=== PATIENT | female | born 1985 | race Caucasian/White ===

== ENCOUNTER 2016-07-01 07:30 | Emergency (ER) | payer OTHER ==
[~2016-07-01] VITALS: Ht 172.7 cm; Wt 88.0 kg
[~2016-07-01 07:30] MED LIST: ACET-789 PO; HYDR-3812 PO; OMEP40CA36 PO; OXYC-197 PO; PREN-53 PO
--- OUTSIDE RECORDS SUMMARY | 2016-07-01 07:36 | XMS REPORT | Continuity of Care Document ---
Author Author [facility] Organization [facility] Address Unknown Phone Unavailable Care Team Providers Care Electronic Engineering Draftsperson Name Role Phone Obdulia Fisher PCP [phone] Source Comments Some departments are not documenting in the electronic medical record. If you do not see the information that you expected, contact Release of Information in the Health Information Management department at [phone] for further assistance in locating additional records.[facility] Active Allergies and Adverse Reactions No Known Allergies Current Medications Prescription Sig. Disp. Refills Start End Date Status Date ACETAMINOPHEN (TYLENOL Take 650 mg by mouth Active PO) Every 4-6 Hours as needed. ferrous sulfate 325 mg Take 1 Tab by mouth Four 120 5 03/10/20 Active (65 mg Iron) tablet Times Daily. senna/docusate Take 1 Tab by mouth Twice 60 5 03/10/20 Active (SENOKOT-S) 8.6/50 mg Daily. 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 Abdominal pain 03/08/2009 Acute kidney failure (HCC) 03/08/2009 UTI 03/08/2009 Social History Tobacco Use Types Packs/Day Years Used Date Never Assessed Last Filed Vital Signs Vital Sign Reading Time Taken Blood Pressure 145/91 04/26/2009 8:52 AM VICE PRESIDENT MEDIA RELATIONS Pulse 86 04/26/2009 8:52 AM VICE PRESIDENT MEDIA RELATIONS Temperature 36.7 C (98 F) 04/26/2009 8:52 AM VICE PRESIDENT MEDIA RELATIONS Respiratory Rate - - Height 1.676 m (5' 6") 04/26/2009 8:52 AM VICE PRESIDENT MEDIA RELATIONS Weight 114.488 kg (252 lb 6.4 04/26/2009 8:52 AM VICE PRESIDENT MEDIA RELATIONS oz) Body Mass Index 40.76 04/26/2009 8:52 AM VICE PRESIDENT MEDIA RELATIONS Oxygen Saturation 98% 03/10/2009 3:30 PM CDT Plan of Care Health Maintenance Due Date Last Done Comments Physical (Comprehensive) 10/31/1991 Exam Pertussis Vaccine 10/31/1995 Tetanus Vaccine 2001 Cervical Cancer Screening 2005 Influenza Vaccine 02/22/2016 Results from Last 3 Months Not on file
[2016-07-01 07:57] LABS: BILIRUBIN,URINE NEGATIVE (NEGATIVE); KETONES,URINE NEGATIVE (NEGATIVE); LEUKOCYTE ESTERASE ,URINE NEGATIVE (NEGATIVE); NITRITE,URINE NEGATIVE (NEGATIVE); PH,URINE 6.5 (5-9); PROTEIN,URINE NEGATIVE (NEGATIVE); UROBILINOGEN,URINE NORMAL (NORMAL)
--- NOTE | 2016-07-01 07:58 | ED GU-Female ---
General Chief Complaint: Abdominal/GI Problems Stated Complaint: NAUSEA/CRAMPING, 5 TO 6 WEEKS PREG Source: patient Exam Limitations: no limitations History of Present Illness Time seen by provider: 07:30 Initial Comments Here with lower abdominal cramping and pain and reports that she is approximately 5-6 weeks . She has not had ultrasound yet. Denies vaginal discharge or bleeding. Denies fever or chills. Timing/Duration: this morning (530 a.m.) Severity/Quality: moderate, cramping Location: suprapubic Radiation: none Activities at Onset: none Sexual [place] History: greater than 2 months ago Modifying Factors: Improves With Resting Associated Symptoms: abdominal painNo dysuria, No fever/chills, No lower back pain, No nausea/vomiting, No urinary frequency Allergies and Home Medications Allergies Coded Allergies: No Known Drug Allergies (Verified , 03/05/09) Home Medications Omeprazole 40 Mg Capsule.dr 40 MG PO DAILY (Reported) Oxycodone HCl/Acetaminophen 1 Each Tablet #30 1 EACH PO Q4H PRN PRN ABDOMINAL PAIN Prescribed by: IRMA RUIZ on 02/21/16 1000 Constitutional: see HPINo chills, No fever EENTM: nose congestionNo throat pain Respiratory: no symptoms reportedNo cough, No short of breath Gastrointestinal: abdominal painNo nausea, No vomiting Genitourinary: no symptoms reported Musculoskeletal: no symptoms reported Skin: no symptoms reported Past Mjbknvd-Gkpkgk-Gopvvu Hx Patient Social History Alcohol Use: Denies Use Recreational Drug Use: No Smoking Status: Never a Smoker Recent Foreign Travel: No Contact w/Someone Who Travel: No Surgeries HX Surgeries: Yes Surgeries: Gallbladder Respiratory Hx Respiratory Disorders: No Cardiovascular Hx Cardiac Disorders: No Neurological Hx Neurological Disorders: No Reproductive System Hx Reproductive Disorders: No Female Reproductive Disorders: Denies Genitourinary Hx Genitourinary Disorders: No Gastrointestinal Hx Gastrointestinal Disorders: Yes Gastrointestinal Disorders: Gastroesophageal Reflux, Gall Bladder Disease Musculoskeletal Hx Musculoskeletal Disorders: No Endocrine Hx Endocrine Disorders: No HEENT HX ENT Disorders: No Cancer Hx Cancer: No Psychosocial Hx Psychiatric Problems: No Integumentary HX Skin/Integumentary Disorder: No Blood Transfusions Hx Blood Disorders: No (anemia) Adverse Reaction to a Blood Tr: No (hx of transfusion in 2008) Reviewed Nursing Assessment Reviewed/Agree w Nursing PMH: Yes Family Medical History Significant Family History: No Pertinent Family Hx Physical Exam Vital Signs Capillary Refill : General Appearance: WD/WN no apparent distress HEENT: PERRL/EOMI pharyngeal erythema (mild) other (moderate bilateral nasal congestion with clear rhinorrhea) Neck: full range of motion supple Cardiovascular: regular rate, rhythm no murmur Respiratory: lungs clear normal breath sounds Gastrointestinal: non tender soft Pelvic: normal external exam discharge (white/doe)No tender adnexa, tender uterus (mild)No vaginal bleeding Back: normal inspection no CVA tenderness no vertebral tenderness Extremities: non-tender normal inspection Neurologic/Psychiatric: alert oriented x 3 Skin: normal color warm/dry Progress/Results/Core Measures Results/Orders Lab Results Laboratory Tests Test 07/01/16 07:45 07/01/16 07:50 07/01/16 08:01 Range/Units Urine Bacteria FEW H /HPF Urine Bilirubin NEGATIVE NEGATIVE Urine Casts NONE /LPF Urine Clarity CLEAR Urine Color YELLOW Urine Crystals NONE /LPF Urine Culture Indicated NO Urine Glucose (UA) NEGATIVE NEGATIVE Urine Ketones NEGATIVE NEGATIVE Urine Leukocyte Esterase NEGATIVE NEGATIVE Urine Mucus NEGATIVE /LPF Urine Nitrite NEGATIVE NEGATIVE Urine Protein NEGATIVE NEGATIVE Urine RBC 2-5 H /HPF Urine RBC (Auto) 2+ H NEGATIVE Urine Specific [place] 1.015 L 1.016-1.022 Urine Squamous Epithelial Cells 5-10 /HPF Urine Urobilinogen NORMAL NORMAL MG/DL Urine WBC 0-2 /HPF Urine pH 6.5 5-9 Alanine Aminotransferase (ALT/SGPT) 14 0-55 U/L Albumin 4.5 3.2-4.5 G/DL Alkaline Phosphatase 62 40-136 U/L Anion Gap 12 5-14 MMOL/L Aspartate Amino Transf (AST/SGOT) 15 5-34 U/L BUN/Creatinine Ratio 13 Blood Urea Nitrogen 10 7-18 MG/DL Calcium Level 9.3 8.5-10.1 MG/DL Carbon Dioxide Level 22 21-32 MMOL/L Chloride Level 104 98-107 MMOL/L Creatinine 0.79 0.60-1.30 MG/DL Estimat Glomerular Filtration Rate > 60 Glucose Level 98 70-105 MG/DL Hematocrit 40 35-52 % Hemoglobin 13.4 11.5-16.0 G/DL Human Chorionic Gonadotropin, Quant 175 H <5 MIU/ML Mean Corpuscular Hemoglobin 30 25-34 PG Mean Corpuscular Hemoglobin Concent 34 32-36 G/DL Mean Corpuscular Volume 89 80-99 FL Mean Platelet Volume 9.9 7.4-10.4 FL Platelet Count 329 130-400 10^3/uL Potassium Level 3.5 L 3.6-5.0 MMOL/L Red Blood Count 4.42 4.35-5.85 10^6/uL Red Cell Distribution Width 12.5 10.0-14.5 % Sodium Level 138 135-145 MMOL/L Total Bilirubin 0.9 0.1-1.0 MG/DL Total Protein 7.6 6.4-8.2 G/DL White Blood Count 10.4 4.3-11.0 10^3/uL Micro Results Microbiology 07/01/16 Genital Culture, Resulted Pending 07/01/16 Wet Prep - Final, Resulted My Orders Orders-MONIQUE MORENO MD Hcg,Quantitative (07/01/16 07:40) Cbc No Diff (07/01/16 07:40) Comprehensive Metabolic Panel (07/01/16 07:40) Wet Prep (07/01/16 07:40) Neisseria Gonorrhea Dna (07/01/16 07:40) Chlamydia Dna (07/01/16 07:40) Genital Culture (07/01/16 07:40) Ua Culture If Indicated (07/01/16 07:40) Saline Lock/Iv-Start (07/01/16 08:03) Ns Iv 1000 Ml (Sodium Chloride 0.9%) (07/01/16 08:03) Us Ob<14 Wks Sngle W/Transvag (07/01/16 07:40) Medications Given in ED Current Medications Medications Dose Ordered Sig/Alex Route Start Time Stop Time Status Last Admin Dose Admin Sodium Chloride 1,000 ml @ 0 mls/hr Q0M ONCE IV 07/01/16 08:03 07/01/16 08:04 DC 07/01/16 09:00 1,000 MLS/HR Progress Note : Progress Note Seen and evaluated. IV, labs and UA ordered. Ultrasound OB ordered. Pelvic exam ordered. 0925: Quant is 157. Ultrasound only shows thickened the endometrium but no obvious findings of outside the uterus or within the uterus otherwise. This would be too early for evaluation given the low Quant level. Patient does have wbc's on wet prep. She is electing to wait for antibiotics until cultures have process. Patient has appointment with Dr. De Anda on . She will follow-up with her related to results and further treatment depending on type of organism present if any abnormalities are noted. Discharged home with return precautions. Patient verbalize understanding instructions and agreement with plan. Patient feels much better after fluid bolus. Diagnostic Imaging Diagonstic Imaging: Ultrasound Plain Films/CT/US/NM/MRI: pelvis Comments VIA [facility]. [place], [place] NAME: ANNA CASTANEDA [facility] REC#: [id number] PT STATUS: REG ER : 1985 PHYSICIAN: MONIQUE MORENO MD ADMIT DATE: 07/01/16/ER Draft Date of Exam:07/01/16 US OB<14 WKS SNGLE W/TRANSVAG CLINICAL INDICATION: Patient with cramping. ESTIMATED GESTATIONAL AGE BY LMP: 5 weeks, 2 days. EXAM: Transabdominal and transvaginal pelvic ultrasound. COMPARISON: None. FINDINGS: There is thickening of the endometrium which measures 1.5 cm. There is no cystic structure or evidence of a gestational sac in the intrauterine region. The uterus is otherwise unremarkable and measures 9.7 cm x 4.7 cm x 5.8 cm. The right and left ovaries show no significant abnormality and demonstrate normal-appearing Doppler flow. The left ovary measures 2.7 cm x 2.1 cm x 2.3 cm and the right ovary measures 3.3 cm x 2.1 cm x 2.7 cm. There is no significant free fluid seen in the pelvis. IMPRESSION: There is no evidence of an intrauterine or gestational sac seen on this exam. These findings may represent failed versus very early . There is no evidence of ectopic seen on this exam. Trending of beta-hCGs and serial pelvic ultrasounds would help better evaluate. Dictated on workstation # [id number] Dict: 07/01/16 0935 Trans: 07/01/16 0949 [id number] Interpreted by: EMI GOMEZ MD Electronically signed by: Departure Impression Impression: Primary Impression: Suprapubic abdominal pain Additional Impression: Threatened miscarriage Disposition: HOME, SELF-CARE Condition: Improved Departure-Patient Inst. Decision time for Depature: 09:30 Referrals: [facility] (PCP) Primary Care Physician ZAHIDA DE ANDA DO (Family) Primary Care Physician Patient Instructions: Acute Abdomen (Belly Pain), Adult (DC), Threatened Miscarriage Add. Discharge Instructions: All discharge instructions reviewed with patient and/or family. Voiced understanding. Procedure for worse pain, fever, vomiting, weakness, breathing problems, increasing vaginal discharge, vaginal bleeding 2 pads per hour for more than 2 hours or other concerns as needed. Your beta hCG quantitative level was 157 today. You will need to follow-up with Dr. De Anda this week for recheck and further evaluation. Your cultures are pending and you may need treatment of vaginal infection. Follow-up with Dr. De Anda related to culture results and the need for further treatment. Return for worse pain, fever, vomiting, weakness, breathing problems or other concerns as needed. Copy Copies To 1: ZAHIDA DE ANDA TIMOTHY D MD Jul 01, 2016 07:58
[2016-07-01 08:01] LABS: MEAN PLATELET VOLUME 9.9 FL (7.4-10.4); RED BLOOD COUNT 4.42 10^6/uL (4.35-5.85); RED CELL DISTRIBUTION WIDTH 12.5 % (10.0-14.5); WHITE BLOOD COUNT 10.4 10^3/uL (4.3-11.0)
[2016-07-01] MEDS ORDERED: NS IV 1000 ML 1,000 ML IV ONE (08:03)
[2016-07-01 08:08] LABS: WBC,URINE 0-2 /HPF
[2016-07-01 08:21] LABS: ALANINE AMINOTRANSFERASE 14 U/L (0-55); ALBUMIN 4.5 G/DL (3.2-4.5); ANION GAP 12 MMOL/L (5-14); ASPARTATE AMINO TRANSFERASE 15 U/L (5-34); BILIRUBIN,TOTAL 0.9 MG/DL (0.1-1.0); BLOOD UREA NITROGEN 10 MG/DL (7-18); BUN/CREATININE RATIO 13; CALCIUM 9.3 MG/DL (8.5-10.1); CARBON DIOXIDE 22 MMOL/L (21-32); CHLORIDE 104 MMOL/L (98-107); CREATININE SERUM 0.79 MG/DL (0.60-1.30); GFR ESTIMATED > 60; GLUCOSE 98 MG/DL (70-105); POTASSIUM 3.5 MMOL/L (3.6-5.0); SODIUM 138 MMOL/L (135-145); TOTAL PROTEIN 7.6 G/DL (6.4-8.2)
--- NOTE | 2016-07-01 09:49 | Diagnostic Imaging Report ---
CLINICAL INDICATION: Patient with cramping. ESTIMATED GESTATIONAL AGE BY LMP: 5 weeks, 2 days. EXAM: Transabdominal and transvaginal pelvic ultrasound. COMPARISON: None. FINDINGS: There is thickening of the endometrium which measures 1.5 cm. There is no cystic structure or evidence of a gestational sac in the intrauterine region. The uterus is otherwise unremarkable and measures 9.7 cm x 4.7 cm x 5.8 cm. The right and left ovaries show no significant abnormality and demonstrate normal-appearing Doppler flow. The left ovary measures 2.7 cm x 2.1 cm x 2.3 cm and the right ovary measures 3.3 cm x 2.1 cm x 2.7 cm. There is no significant free fluid seen in the pelvis. IMPRESSION: There is no evidence of an intrauterine or gestational sac seen on this exam. These findings may represent failed versus very early . There is no evidence of ectopic seen on this exam. Trending of beta-hCGs and serial pelvic ultrasounds would help better evaluate. Dictated by: Dictated on workstation # [id number]
[2016-07-01 10:03] VITALS: BP 130/91
[2016-07-01] MEDS ORDERED: NS IV 1000 ML 1,000 ML ONE (10:34)
== END 2016-07-01 10:03 | disposition home or self-care (01) ==
LOC: EDUNIT# 07:30 → ER 07:32
DX: O20.0 Threatened abortion (principal); O26.891 Other specified pregnancy related conditions, first trimester; Z3A.01 Less than 8 weeks gestation of pregnancy
CPT/HCPCS: 36415; 76801; 76817; 80053; 81000; 84702; 85027; 87070; 87210; 87491; 87591; 96360

== ENCOUNTER → 2016-07-10 | Outpatient (CLI) | payer OTHER ==
--- OUTSIDE RECORDS SUMMARY | 2016-07-10 08:44 | XMS REPORT | Continuity of Care Document ---
Author Author [facility] Organization [facility] Address Unknown Phone Unavailable Care Team Providers Care Box Spinner Name Role Phone Obdulia Fisher PCP [phone] Source Comments Some departments are not documenting in the electronic medical record. If you do not see the information that you expected, contact Release of Information in the Health Information Management department at [phone] for further assistance in locating additional records.[facility] Active Allergies and Adverse Reactions No [...] Taken Blood Pressure 145/91 04/26/2009 8:52 AM DINKING MACHINE OPERATOR Pulse 86 04/26/2009 8:52 AM DINKING MACHINE OPERATOR Temperature 36.7 C (98 F) 04/26/2009 8:52 AM DINKING MACHINE OPERATOR Respiratory Rate - - Height 1.676 m (5' 6") 04/26/2009 8:52 AM DINKING MACHINE OPERATOR Weight 114.488 kg (252 lb 6.4 04/26/2009 8:52 AM DINKING MACHINE OPERATOR oz) Body Mass Index 40.76 04/26/2009 8:52 AM DINKING MACHINE OPERATOR Oxygen Saturation 98% 03/10/2009 3:30 PM CDT Plan of Care Health Maintenance Due Date Last Done Comments Physical (Comprehensive) 10/31/1991 Exam Pertussis Vaccine 10/31/1995 Tetanus Vaccine 2001 Cervical Cancer Screening 2005 Influenza Vaccine 02/22/2016 Results from Last 3 Months Not on file
== END ==
LOC: LAB 08:40
PROVIDERS: ATTEND Obstetrics & Gynecology
DX: Z34.81 Encounter for supervision of other normal pregnancy, first trimester (principal)
CPT/HCPCS: 36415; 84702

== ENCOUNTER → 2016-08-08 | Outpatient (CLI) | payer OTHER ==
--- OUTSIDE RECORDS SUMMARY | 2016-08-08 13:21 | XMS REPORT | Continuity of Care Document ---
Author Author [facility] Organization [facility] Address Unknown Phone Unavailable Care Team Providers Care Director Of Health Education Name Role Phone Obdulia Fisher PCP [phone] Source Comments Some departments are not documenting in the electronic medical record. If you do not see the information that you expected, contact Release of Information in the Health Information Management department at [phone] for further assistance in locating additional records.[facility] Active Allergies and Adverse Reactions No Known [...] Taken Blood Pressure 145/91 04/26/2009 8:52 AM HOME PERFORMANCE LABORER Pulse 86 04/26/2009 8:52 AM HOME PERFORMANCE LABORER Temperature 36.7 C (98 F) 04/26/2009 8:52 AM HOME PERFORMANCE LABORER Respiratory Rate - - Height 1.676 m (5' 6") 04/26/2009 8:52 AM HOME PERFORMANCE LABORER Weight 114.488 kg (252 lb 6.4 04/26/2009 8:52 AM HOME PERFORMANCE LABORER oz) Body Mass Index 40.76 04/26/2009 8:52 AM HOME PERFORMANCE LABORER Oxygen Saturation 98% 03/10/2009 3:30 PM CDT Plan of Care Health Maintenance Due Date Last Done Comments Physical (Comprehensive) 10/31/1991 Exam Pertussis Vaccine 10/31/1995 Tetanus Vaccine 2001 Cervical Cancer Screening 2005 Influenza Vaccine 02/22/2016 Results from Last 3 Months Not on file
== END ==
LOC: LAB 13:17
PROVIDERS: ATTEND Obstetrics & Gynecology
DX: O03.9 Complete or unspecified spontaneous abortion without complication (principal)
CPT/HCPCS: 36415; 84702

== ENCOUNTER → 2016-08-22 | Outpatient (CLI) | payer OTHER ==
--- OUTSIDE RECORDS SUMMARY | 2016-08-22 11:40 | XMS REPORT | Continuity of Care Document ---
Author Author [facility] Organization [facility] Address Unknown Phone Unavailable Care Team Providers Care Irish Moss Operator Name Role Phone Obdulia Fisher PCP [phone] Source Comments Some departments are not documenting in the electronic medical record. If you do not see the information that you expected, contact Release of Information in the Health Information Management department at [phone] for further assistance in locating additional records.[facility] Active Allergies and Adverse Reactions No [...] Taken Blood Pressure 145/91 04/26/2009 8:52 AM TIMBER MANAGEMENT PROFESSOR Pulse 86 04/26/2009 8:52 AM TIMBER MANAGEMENT PROFESSOR Temperature 36.7 C (98 F) 04/26/2009 8:52 AM TIMBER MANAGEMENT PROFESSOR Respiratory Rate - - Height 1.676 m (5' 6") 04/26/2009 8:52 AM TIMBER MANAGEMENT PROFESSOR Weight 114.488 kg (252 lb 6.4 04/26/2009 8:52 AM TIMBER MANAGEMENT PROFESSOR oz) Body Mass Index 40.76 04/26/2009 8:52 AM TIMBER MANAGEMENT PROFESSOR Oxygen Saturation 98% 03/10/2009 3:30 PM CDT Plan of Care Health Maintenance Due Date Last Done Comments Physical (Comprehensive) 10/31/1991 Exam Pertussis Vaccine 10/31/1995 Tetanus Vaccine 2001 Cervical Cancer Screening 2005 Influenza Vaccine 02/22/2016 Results from Last 3 Months Not on file
== END ==
LOC: LAB 11:15
PROVIDERS: ATTEND Obstetrics & Gynecology
DX: O03.9 Complete or unspecified spontaneous abortion without complication (principal)
CPT/HCPCS: 36415; 84702

== ENCOUNTER 2017-03-18 19:08 | Emergency (ER) | payer SELFPAY ==
[~2017-03-18] VITALS: Ht 172.7 cm; Wt 88.0 kg
[2017-03-18] MEDS ORDERED: SULF1TAB35 PO (19:23)
--- NOTE | 2017-03-18 19:24 | ED Integumentary General ---
General Chief Complaint: Bite-Animal/Human/Insect Stated Complaint: BITES ON RT ARM Source: patient Exam Limitations: no limitations History of Present Illness Time seen by provider: 19:20 Initial Comments To ER with 4 "bites" to the posterior right upper arm. These been present for about 2 days. They're itchy. She states that he had some blisters on them yesterday and currently they have honey colored exudate. She does not recall being bitten by anything. Timing/Duration: yesterday Severity: mild Allergies and Home Medications Allergies Coded Allergies: No Known Drug Allergies (Verified , 03/05/09) Home Medications Omeprazole 40 Mg Capsule.dr, 40 MG PO DAILY, (Reported) Oxycodone HCl/Acetaminophen 1 Each Tablet, 1 EACH PO Q4H PRN for ABDOMINAL PAIN , #30 Prescribed by: IRMA RUIZ on 02/21/16 1000 Constitutional: see HPI EENTM: see HPI Respiratory: no symptoms reported Cardiovascular: no symptoms reported Genitourinary: no symptoms reported Musculoskeletal: no symptoms reported Skin: see HPI Psychiatric/Neurological: No Symptoms Reported Endocrine: No Symptoms Reported Past Oafdwfp-Xbcpes-Ftknxr Hx Patient Social History Recent Foreign Travel: No Contact w/Someone Who Travel: No Recent Hopitalizations: No Immunizations Up To Date Date of Influenza Vaccine: Mar 27, 2016 Seasonal Allergies Seasonal Allergies: No Surgeries Surgeries: Gallbladder Reproductive System Hx Reproductive Disorders: No Female Reproductive Disorders: Denies Gastrointestinal Gastrointestinal Disorders: Gastroesophageal Reflux, Gall Bladder Disease Blood Transfusions Adverse Reaction to a Blood Tr: No (hx of transfusion in 2008) Family Medical History Significant Family History: No Pertinent Family Hx Physical Exam Vital Signs Capillary Refill : General Appearance: WD/WN, no apparent distress HEENT: PERRL/EOMI, normal ENT inspection Neck: non-tender, full range of motion Respiratory: no respiratory distress, no accessory muscle use Gastrointestinal: normal bowel sounds, non tender, soft Extremities: normal range of motion, non-tender Neurologic/Psychiatric: alert, normal mood/affect, oriented x 3 Skin: normal color, warm/dry, other (41 cm circular areas posterior right upper arm with honey-colored exudate.) Progress/Results/Core Measures Results/Orders My Orders Orders - BROOKE MCKENZIE APRN Mupirocin Ointment (Bactroban Ointment (03/18/17 21:00) Sulfamethoxazole/Trimet Ds Tab (Bactrim (03/18/17 19:30) Departure Impression Impression: Primary Impression: Impetigo bullosa Disposition: 01 HOME, SELF-CARE Condition: Stable Departure-Patient Inst. Decision time for Depature: 19:22 Referrals: JOHNNIE GONZALEZ DO (PCP) Primary Care Physician ARISTEO BASSETT (Family) Primary Care Physician Patient Instructions: Impetigo (DC) Add. Discharge Instructions: 1. Wash these areas with soap and water at least once a day and try to scrub gently to remove the crusts from these 2. After you bathe, apply the antibiotic ointment twice daily for 7 days 3. Antibiotics as directed 4. Use a topical lckl-bjz-blodlep steroid cream like Cortizone 10 to help with itching as well. Scripts Sulfamethoxazole/Trimethoprim (Bactrim Ds Tablet) 1 Each Tablet 1 EACH PO BID, #14 TAB Prov: BROOKE MCKENZIE APRN 03/18/17 BROOKE MCKENZIE APRN Mar 18, 2017 19:24
[2017-03-18 19:30] VITALS: BP 145/95
[2017-03-18] MEDS ORDERED: TRIM/SULFAMETH 160/800 (SEPTRA DS) TAB PO ONE (19:30)
[2017-03-18] MEDS ORDERED: MUPIROCIN 2% OINT 22 GM (BACTROBAN) TUBE TOP SCH (21:00)
[2017-05-06] MEDS ORDERED: HYDR-3812 PO (14:05)
[2017-05-06] MEDS ORDERED: IBUP-1773 PO (14:05)
== END 2017-03-18 19:30 | disposition home or self-care (01) ==
LOC: EDUNIT# 19:08 → ER 19:10
DX: L01.03 Bullous impetigo (principal); K21.9 Gastro-esophageal reflux disease without esophagitis; Z87.19 Personal history of other diseases of the digestive system
CPT/HCPCS: 99283

== ENCOUNTER 2017-05-06 12:00 | Day surgery (SDC) | payer BC ==
[~2017-05-06] VITALS: Ht 172.7 cm; Wt 103.0 kg
[~2017-05-06 12:00] MED LIST changes: +SULF1TAB35 PO
[2017-05-06 12:17] VITALS: BP 118/76
[2017-05-06 12:34] LABS: BASOPHILS % (AUTO) 0 % (0-10); EOSINOPHILS # (AUTO) 0.2 10^3/uL (0.0-0.3); EOSINOPHILS % (AUTO) 2 % (0-10); LYMPHOCYTES # (AUTO) 2.2 X 10^3 (1.0-4.0); LYMPHOCYTES % (AUTO) 22 % (12-44); MEAN CORPUSCULAR HEMOGLOBIN 31 PG (25-34); MEAN CORPUSCULAR HGB CONC 35 G/DL (32-36); MEAN CORPUSCULAR VOLUME 90 FL (80-99); MONOCYTES # (AUTO) 0.5 X 10^3 (0.0-1.0); MONOCYTES % (AUTO) 5 % (0-12); NEUTROPHILS # (AUTO) 7.1 X 10^3 (1.8-7.8); NEUTROPHILS % (AUTO) 71 % (42-75); PLATELET COUNT 295 10^3/uL (130-400); RED BLOOD COUNT 3.96 10^6/uL (4.35-5.85); RED CELL DISTRIBUTION WIDTH 12.6 % (10.0-14.5); WHITE BLOOD COUNT 10.1 10^3/uL (4.3-11.0)
[2017-05-06] MEDS ORDERED: metroNIDAZOLE 500 MG/100 ML IVPB (PRE-MIX) IV ONE (12:45)
[2017-05-06] MEDS ORDERED: CATHETER FLUSH 10 ML SYR IV PRN (12:45)
[2017-05-06] MEDS ORDERED: ceFAZolin 1 GM/NS 50 ML IVPB IV ONE ×2 (12:45)
--- OUTSIDE RECORDS SUMMARY | 2017-05-06 12:45 | XMS REPORT | Clinical Summary ---
Author Author [facility] Organization [facility] Address Unknown Phone Unavailable Care Team Providers Care Medical Record Coder Name Role Phone PCP Unavailable Source Comments Some departments are not documenting in the electronic medical record. If you do not see the information that you expected, contact Release of Information in the Health Information Management department at [phone] for further assistance in locating additional records.[facility] Allergies No Known Allergies Current Medications Prescription Sig. Disp. Refills Start End Date Status Date ACETAMINOPHEN (TYLENOL Take 650 mg by mouth Active PO) Every 4-6 Hours as needed. ferrous sulfate 325 mg Take 1 Tab by mouth Four 120 5 03/10/20 Active (65 mg Iron) tablet Times Daily. 09 senna/docusate Take 1 Tab by mouth Twice 60 5 03/10/20 Active (SENOKOT-S) 8.6/50 mg Daily. 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 Abdominal pain 03/08/2009 Acute kidney failure (HCC) 03/08/2009 UTI 03/08/2009 Family History Medical History Relation Name Comments Hypertension Mother Heart Disease grandparents Relation Name Status Comments Mother Social History Tobacco Use Types Packs/Day Years Used Date Never Assessed Sex Assigned at Date Recorded Not on file Last Filed Vital Signs Vital Sign Reading Time Taken Blood Pressure 145/91 04/26/2009 8:52 AM FAMILY PRACTICE DOCTOR Pulse 86 04/26/2009 8:52 AM FAMILY PRACTICE DOCTOR Temperature 36.7 C (98 F) 04/26/2009 8:52 AM FAMILY PRACTICE DOCTOR Respiratory Rate - - Oxygen Saturation 98% 03/10/2009 3:30 PM CDT Inhaled Oxygen - - Concentration Weight 114.5 kg (252 lb 6.4 oz) 04/26/2009 8:52 AM FAMILY PRACTICE DOCTOR Height 167.6 cm (5' 6") 04/26/2009 8:52 AM FAMILY PRACTICE DOCTOR Body Mass Index 40.74 04/26/2009 8:52 AM FAMILY PRACTICE DOCTOR Plan of Treatment Health Maintenance Due Date Last Done Comments PHYSICAL (COMPREHENSIVE) 10/31/1991 EXAM PERTUSSIS VACCINE 10/31/1995 TETANUS VACCINE 2001 CERVICAL CANCER SCREENING 2014 INFLUENZA VACCINE 01/21/2017 Results Not on filefrom Last 3 Months
--- OUTSIDE RECORDS SUMMARY | 2017-05-06 12:48 | XMS REPORT ---
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 Active 708288658 Problem Epigastric pain R10.13 Active 04472241 ALLERGIES No Known Allergies SOCIAL HISTORY Never Assessed PLAN OF CARE Activity Details Follow Up 3 weeks Reason: VITAL SIGNS Height 67 in 2016-08-01 Weight 200.0 lbs 2016-08-01 Temperature 98.3 degrees Fahrenheit 2016-08-01 Heart Rate 76 bpm 2016-08-01 Respiratory Rate 18 2016-08-01 BMI 31.32 kg/m2 2016-08-01 Blood pressure systolic 122 mmHg 2016-08-01 Blood pressure diastolic 76 mmHg 2016-08-01 MEDICATIONS Medication Instructions Dosage Frequency Start Date End Date Duration Status Paxil 10 mg Orally Once a day 1 tablet in the morning 24h Jul, 30 day(s) Active Omeprazole 40 MG Orally Once a day 1 capsule 24h 30 day(s) Active Clonazepam 0.5 MG Orally Once a day prn 1 tablet Jul, 28 days Active RESULTS No Results PROCEDURES No Known procedures IMMUNIZATIONS No Known Immunizations MEDICAL (GENERAL) HISTORY Type Description Date Medical History Acid Reflux Surgical History gall bladder removal 02/21/16 Hospitalization History Kidney failure, anemic, low RBC's - was transferred from [facility] to 2008
--- OUTSIDE RECORDS SUMMARY | 2017-05-06 12:48 | XMS REPORT ---
Author ARISTEO Joe Organization [employer] Address Unknown Phone Unavailable Care Team Providers Care Cardiology Clinical Nurse Specialist Name Role Phone ARISTEO BASSETT CP Unavailable Allergies No Known Allergies Problems Problem Type Condition Code Onset Dates Condition Status Problem Heartburn R12 Active Problem Epigastric pain R10.13 Active Medications No Known Medications Results No Known Results Summary Purpose [employer] Submission
--- OUTSIDE RECORDS SUMMARY | 2017-05-06 12:50 | XMS REPORT ---
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
--- OUTSIDE RECORDS SUMMARY | 2017-05-06 12:50 | XMS REPORT ---
Author Author ARISTEO BASSETT [facility] [employer] Address Unknown Phone Unavailable Care Team Providers Care Illusionist Name Role Phone ARISTEO BASSETT CP Unavailable Allergies, Adverse Reactions, Alerts Substance Reaction Event Type N.K.D.A. Info Not Available Non Drug Allergy Problems Problem Type Condition Code Onset Dates Condition Status Problem Heartburn R12 Active Assessment Epigastric pain R10.13 Active Problem Epigastric pain R10.13 Active Assessment Heartburn R12 Active Medications No Known Medications Procedures Procedure Coding System Code Date IMMUNOASSAY,INFECTIOUS AGENT CPT-4 80463 May 25, 2015 COMPLETE CBC W/AUTO DIFF WBC CPT-4 50165 May 25, 2015 URINE TEST CPT-4 79066 May 25, 2015 Office Visit, New Pt., Level 3 CPT-4 93165 May 25, 2015 COMPREHEN METABOLIC PANEL CPT-4 70000 May 25, 2015 VENIPUNCT, ROUTINE* CPT-4 49135 May 25, 2015 Vital Signs Date/Time: May 25, 2015 Temperature 98.3 F Weight 241.9 lbs Height 67 in BMI 37.88 Index Blood Pressure Diastolic 86 mmHg Blood Pressure Systolic 118 mmHg Cardiac Monitoring Heart Rate 80 bpm Results No Known Results Summary Purpose [employer] Submission
--- OUTSIDE RECORDS SUMMARY | 2017-05-06 12:50 | XMS REPORT ---
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 Active 173228443 Problem Epigastric pain R10.13 Active 69074659 ALLERGIES No Known Allergies SOCIAL HISTORY Never Assessed PLAN OF CARE Activity Details Follow Up if not improving and fu in 6 months Reason:mood VITAL SIGNS Height 67 in 2016-09-11 Weight 204.1 lbs 2016-09-11 Temperature 99.9 degrees Fahrenheit 2016-09-11 Heart Rate 96 bpm 2016-09-11 Respiratory Rate 20 2016-09-11 BMI 31.96 kg/m2 2016-09-11 Blood pressure systolic 124 mmHg 2016-09-11 Blood pressure diastolic 86 mmHg 2016-09-11 MEDICATIONS Medication Instructions Dosage Frequency Start Date End Date Duration Status Paxil 10 mg Orally Once a day 1 tablet in the morning 24h 30 day(s) Active Omeprazole 40 MG Orally Once a day 1 capsule 24h 30 Active ProAir HFA 108 (90 Base) MCG/ACT Inhalation 3 times a day prn 2 puffs as needed Aug, 07 days Active Clonazepam 0.5 MG Orally Once a day prn 1 tablet Jul, Aug, 28 days Active Azithromycin 250 MG Orally Once a day 2 tablets on the first day, then 1 tablet daily for 4 days 24h Aug, Aug, 5 day(s) Active Promethazine-Codeine 6.25-10 MG/5ML Orally every 6 hrs 5-10 ml as needed 6h Aug, Active RESULTS Name Result Date Reference Range INFLUENZA A & B (IN HOUSE) 2016-09-11 INFLUENZA A pos INFLUENZA B neg Control + Lot # [id number] Exp date 12/19/2017 STREP A (IN HOUSE) 2016-09-11 STREP A negative Control + Lot # [id number] Exp date 09/19/2017 PROCEDURES Procedure Date Ordered Result Body Site STREP A ASSAY W/OPTIC September 11, 2016 INFLUENZA ASSAY W/OPTIC September 11, 2016 IMMUNIZATIONS No Known Immunizations MEDICAL (GENERAL) HISTORY Type Description Date Medical History Acid Reflux Surgical History gall bladder removal 02/21/16 Hospitalization History Kidney failure, anemic, low RBC's - was transferred from [facility] to 2008
--- OUTSIDE RECORDS SUMMARY | 2017-05-06 12:50 | XMS REPORT ---
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 Active 156648139 Problem Epigastric pain R10.13 Active 03166704 ALLERGIES No Information SOCIAL HISTORY Never Assessed PLAN OF CARE VITAL SIGNS MEDICATIONS Medication Instructions Dosage Frequency Start Date End Date Duration Status Omeprazole 40 mg Orally Once a day 1 capsule 24h 30 day(s) Active RESULTS No Results PROCEDURES No Known procedures IMMUNIZATIONS No Known Immunizations MEDICAL (GENERAL) HISTORY Type Description Date Medical History Acid Reflux Surgical History gall bladder removal 02/21/16 Hospitalization History Kidney failure, anemic, low RBC's - was transferred from [facility] to 2008
--- OUTSIDE RECORDS SUMMARY | 2017-05-06 12:50 | XMS REPORT ---
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 Unknown Non Drug Allergy Feb, Unknown SOCIAL HISTORY No smoking Hx information available PLAN OF CARE VITAL SIGNS Height 67 in 2016-03-06 Weight 205.7 lbs 2016-03-06 Heart Rate 78 bpm 2016-03-06 Respiratory Rate 16 2016-03-06 BMI 32.21 kg/m2 2016-03-06 Blood pressure systolic 130 mmHg 2016-03-06 Blood pressure diastolic 82 mmHg 2016-03-06 MEDICATIONS Medication Instructions Dosage Frequency Start Date End Date Duration Status Bactrim DS 800-160 MG Orally Twice a day 1 tablet 12h Feb,Feb 07 days Active Omeprazole 40 MG Orally Once a day 1 capsule 24h 30 day(s) Active BusPIRone HCl 10 mg Orally Twice a day prn 1 tablet Feb, Active RESULTS Name Result Date Reference Range UA W/CULTURE IF INDICATED (IN HOUSE) 2016-03-06 Lot # [id number] Exp date 01/2017 Clarity clear Color yellow Odor none GLU neg MINERVA neg KET neg SG 1.010 BLO 2+ pH 6.5 Protein neg URO 0.2 NIT neg AMY trace Lot # [id number] Exp date 01/2017 CULTURE, URINE 2016-03-06 Urine Culture, Routine Final report Result 1 Antimicrobial Susceptibility PROCEDURES Procedure Date Ordered Related Diagnosis Body Site URINALYSIS, AUTO, W/O SCOPE Mar 06, 2016 URINE CULTURE/COLONY COUNT Mar 06, 2016 Office Visit, Est Pt., Level 3 Mar 06, 2016 IMMUNIZATIONS No Known Immunizations
--- OUTSIDE RECORDS SUMMARY | 2017-05-06 12:52 | XMS REPORT ---
Author JOHNNIE Ramos [facility] eClinical[employer] Address Unknown Phone Unavailable Care Team Providers Care Lathe Sander Name Role Phone JOHNNIE GONZALEZ CP Unavailable Allergies, Adverse Reactions, Alerts Substance Reaction Event Type N.K.D.A. Info Not Available Non Drug Allergy Problems Problem Type Condition Code Onset Dates Condition Status Problem Heartburn R12 Active Assessment Acute cystitis with hematuria N30.01 Active Problem Epigastric pain R10.13 Active Medications Medication Code System Code Instructions Start Date End Date Status Dosage Cipro [facility] [address]-34 250 MG Orally every 12 hrs September 27, 2015September 1 tablet Omeprazole [facility] [address]-30 40 MG Orally Once a day 1 capsule Procedures Procedure Coding System Code Date URINE CULTURE/COLONY COUNT CPT-4 57319 September 27, 2015 Office Visit, Est Pt., Level 3 CPT-4 73154 September 27, 2015 URINALYSIS, AUTO, W/O SCOPE CPT-4 86606 September 27, 2015 Vital Signs Date/Time: September 27, 2015 Temperature 97.5 F Weight 221.0 lbs Height 67 in BMI 34.61 Index Blood Pressure Diastolic 78 mmHg Blood Pressure Systolic 130 mmHg Cardiac Monitoring Heart Rate 78 bpm Results Name Result Date Reference Range Unit Abnormality Flag UA W/CULTURE IF INDICATED (IN HOUSE) ----AMY 1+ [id number] ----NIT neg [id number] ----SG 1.005 [id number] ----KET neg [id number] ----MINERVA neg [id number] ----GLU neg [id number] ----Odor yes [id number] ----pH 5.5 20150927 ----BLO 1+ 20150927 ----URO 0.2 20150927 ----Protein neg [id number] ----Lot # [id number] ----Exp date [id number] ----Clarity clear [id number] ----Color yellow [id number] Summary Purpose eClinicalWorks Submission
--- OUTSIDE RECORDS SUMMARY | 2017-05-06 12:52 | XMS REPORT ---
Author Author ARISTEO BASSETT [facility] e[employer] Address Unknown Phone Unavailable Care Team Providers Care X Ray Service Technician Name Role Phone ARISTEO BASSETT CP Unavailable Allergies, Adverse Reactions, Alerts Substance Reaction Event Type N.K.D.A. 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 Active Problem Heartburn R12 Active Assessment Upper abdominal pain R10.10 Active Medications Medication Code System Code Instructions Start Date End Date Status Dosage Omeprazole [facility] [address]-74 40 MG Orally Once a day 1 capsule Clobetasol Propionate [facility] [address]-94 0.05 % Externally Twice a day Jan 30, 2016 1 application to affected area Procedures Procedure Coding System Code Date ASSAY OF LIPASE CPT-4 92560 Jan 30, 2016 COMPREHEN METABOLIC PANEL CPT-4 21133 Jan 30, 2016 ASSAY OF AMYLASE CPT-4 64383 Jan 30, 2016 VENIPUNCT, ROUTINE* CPT-4 13766 Jan 30, 2016 Office Visit, Est Pt., Level 4 CPT-4 78406 Jan 30, 2016 Vital Signs Date/Time: Jan 30, 2016 Cardiac Monitoring Heart Rate 77 bpm Weight 205.8 lbs Height 67 in BMI 32.23 Index Blood Pressure Diastolic 82 mmHg Blood Pressure Systolic 125 mmHg Results No Known Results Summary Purpose eClinicalWorks Submission
--- NOTE | 2017-05-06 13:11 | Progress Note-Pre Operative ---
Pre-Operative Progress Note H&P Reviewed The H&P was reviewed, patient examined and no changes noted. Date Seen by Provider: May 06, 2017 Time Seen by Provider: 13:15 Date H&P Reviewed: May 06, 2017 Time H&P Reviewed: 13:10 Pre-Operative Diagnosis: missed ZAHIDA Coughlin DO May 06, 2017 13:11
[2017-05-06] MEDS ORDERED: proPOfol 200 MG/20 ML (DIPRIVAN) VIAL IV ONE (13:12)
[2017-05-06] MEDS ORDERED: ONDANSETRON 4 MG/2 ML (SDV) Z0FRAN ONE ×2 (13:12→14:12)
[2017-05-06] MEDS ORDERED: DEXAMETHASONE 10 MG/ML (DECADRON) 1 ML VIAL ONE (13:12)
[2017-05-06] MEDS ORDERED: SEVOFLURANE (ULTANE) 15 ML INHAL SOLN ONE (13:12)
[2017-05-06] MEDS ORDERED: LIDOCAINE PF 2% 5 ML (XYLOCAINE) VIAL ONE (13:12)
[2017-05-06] MEDS ORDERED: fentaNYL INJECTION 100 MCG/2 ML AMP ONE (13:13)
[2017-05-06] MEDS ORDERED: MIDAZOLAM 2 MG/2 ML (VERSED) VIAL ONE (13:13)
[2017-05-06] MEDS ORDERED: LACTATED RINGERS 1,000 ML IV PRN (13:14)
[2017-05-06] MEDS ORDERED: FAMOTIDINE 20MG/2ML IV (PEPCID) IV ONE (13:15)
--- NOTE | 2017-05-06 14:02 | Operative Report ---
Operative Report Date of Procedure/Surgery May 06, 2017 Surgeon (s) ZAHIDA DE ANDA DO Head Packager (s): Maricruz Garcia, MS III Post-Operative Diagnosis missed ab Procedure Performed Suction diation and curettage Description of Procedure Anesthesia Type: General Estimated blood loss (mL): 100 Specimen(s) collected/removed products of conception Description of the Procedure With informed consent the patient was taken to the operating room where general anesthesia was found to be adequate. She was prepped and draped in the usual sterile fashion in the dorsolithotomy position. The bladder was drained of clear, yellow urine. A speculum was placed in the vagina and the cervix was grasped with a tenaculum. The cervix was closed. The cervix was gently dilated with Davian dilators. A suction curette was done removing a moderate amount of products of conception. This was followed with a sharp curette until a gritty texture was heard. I then followed with suction to ensure that all blood clots were removed. The tenaculum was removed from the cervix and a ring forceps was used to control any bleeding on the cervix. The instruments were removed from the vagina. The patient was awakened and taken to the recovery room in stable condition. Findings of the Procedure moderate amount of products of conception Allergies and Home Medications Allergies Coded Allergies: No Known Drug Allergies (Verified , 03/05/09) Home Medications Hydrocodone/Acetaminophen 1 Each Tablet, 2 EACH PO Q6H PRN for PAIN, #30 Prescribed by: ZAHIDA DE ANDA on 05/06/17 1405 Ibuprofen 600 Mg Tablet, 600 MG PO Q6H PRN for PAIN, #60 Prescribed by: ZAHIDA DE ANDA on 05/06/17 1405 Omeprazole 40 Mg Capsule., 40 MG PO DAILY, (Reported) ZAHIDA DE ANDA DO May 06, 2017 14:02
[2017-05-06] MEDS ORDERED: HYDR-3812 PO (14:05)
[2017-05-06] MEDS ORDERED: IBUP-1773 PO (14:05)
--- NOTE | 2017-05-06 14:07 | Discharge Inst-Women's Service ---
Discharge Inst-Women's Serv Depart Medication/Instructions New, Converted or Re-Newed RX: RX on Chart Final Diagnosis miscarriage dilation and curettage Consults/Follow Up Additional Follow Up: Yes (2 weeks with Kristen and 6=8 weeks anisa Dong for labs) Activity Activity: Activity as Tolerated Driving Instructions: No Driving for 24 Hours NO SMOKING: NO SMOKING Nothing Inside Vagina: No Douching, No Ewing, No Tampons Diet Discharge Diet: No Restrictions Symptoms to Report to DrAl: Bleeding Excessive, Pain Increased, Fever Over 101 Degrees F, Vaginal Bleeding Increase, Vaginal Discharge ZAHIDA Ricardo DO May 06, 2017 14:07
[2017-05-06] MEDS ORDERED: HYDROcodone/APAP 5 MG/325 MG (LORTAB) TAB PO PRN (14:15)
[2017-05-06] MEDS ORDERED: KETOROLAC 30 MG/ML VIAL IVP PRN (14:15)
[2017-05-06] MEDS: morphine INJ 10 MG/ML 1ML (SYR OR VIAL) IVP PRN ×2 (14:25→14:35)
[2017-05-06 15:05] VITALS: BP 119/69
[2017-05-06 15:30] VITALS: BP 110/55
[2017-05-06 16:00] VITALS: BP 114/59
[2017-05-06 16:10] VITALS: BP 114/59
== END 2017-05-06 16:10 | disposition home or self-care (01) ==
LOC: SDC 12:00
PROVIDERS: ATTEND Obstetrics & Gynecology
DX: O02.1 Missed abortion (principal); K21.9 Gastro-esophageal reflux disease without esophagitis; E66.01 Morbid (severe) obesity due to excess calories; Z68.34 Body mass index [BMI] 34.0-34.9, adult
CPT/HCPCS: 36415; 85025; 86850; 86870; 86900; 86901; 86902; 87081; 88305

== ENCOUNTER 2017-11-16 00:31 | Emergency (ER) | payer MEDICAID, OTHER ==
[~2017-11-16] VITALS: Ht 167.6 cm; Wt 108.0 kg
[~2017-11-16 00:31] MED LIST changes: +ACHD5005 PO; -HYDR-3812 PO; +IBUP-1773 PO
--- OUTSIDE RECORDS SUMMARY | 2017-11-16 00:38 | XMS REPORT ---
Author Author ARISTEO BASSETT [facility] Address [address] [place] [address] Care Team Providers Care Senior Producer Name Role Phone ARISTEO BASSETT Unavailable PROBLEMS Type Condition ICD9-CM Code TPM50-MC Code Onset Dates Condition Status SNOMED Code Problem Calculus of gallbladder without cholecystitis without obstruction K80.20 Active 910995198 Problem Generalized anxiety disorder F41.1 Active 46647665 Problem Major depressive disorder, recurrent episode, moderate F33.1 Active 080619744 Problem Epigastric pain R10.13 Active 68136556 Problem Heartburn R12 Active 81324435 Problem Upper abdominal pain R10.10 Active 36942103 Problem Nickel allergy, 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 Active 435251634 ALLERGIES No Information ENCOUNTERS Encounter Location Date Diagnosis [place] [address] [address] Jul, Heartburn R12 [address] [address] Jul, Acute nasopharyngitis J00 [place] [address] [place] [id number] [place] [address] May, [place] [address] [address] Apr, Acute nasopharyngitis J00 ; Depression with anxiety F41.8 and Influenza A J10.1 [place] [address] [address] Apr, Major depressive disorder, recurrent episode, moderate F33.1 and Generalized anxiety disorder F41.1 [place] [address] [address] Apr, [place] [address] [place] [id number] [place] [address] Aug, Sore throat J02.9 ; Depression with anxiety F41.8 ; Influenza A J10.1 and Acute non-recurrent maxillary sinusitis J01.00 [place] [address] [address] 14 Aug, 2016 Heartburn R12 [place] [address] [address] Jul, Depression with anxiety F41.[address] [address] Jun, Encounter for test Z32.00 [place] [address] [address] 14 Feb, 2016 Dysuria R30.0 ; Acute cystitis with hematuria N30.01 and Anxiety F41.9 [place] [address] [address] Jan, Upper abdominal pain R10.10 ; Heartburn R12 and Nickel allergy, 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 [address] Sep, Acute cystitis with hematuria N30.01 [place] [address] [address] Aug, Sinusitis J32.9 and Cough R05 [place] [address] [address] 17 Jul, 2015 Heartburn R12 [place] [address] [address] Jul, [place] [address] [address] May, Epigastric pain R10.13 and Heartburn R12 [place] [address] [place] [address] Jun, [facility] [address] [address] Mar, [facility] [address] [address] Mar, [facility] [address] [place] [address] Mar, [facility] [address] [place] [address] Mar, [facility] [address] [place] [address] Aug, IMMUNIZATIONS No Known Immunizations SOCIAL HISTORY Never Assessed REASON FOR VISIT Medication question PLAN OF CARE VITAL SIGNS MEDICATIONS Unknown Medications RESULTS No Results PROCEDURES No Known procedures INSTRUCTIONS MEDICATIONS ADMINISTERED No Known Medications MEDICAL (GENERAL) HISTORY Type Description Date Medical History Acid Reflux Surgical History gall bladder removal 02/21/16 Surgical History D &C 04/2017 Hospitalization History Kidney failure, anemic, low RBC's - was transferred from [facility] to 2008
--- OUTSIDE RECORDS SUMMARY | 2017-11-16 00:38 | XMS REPORT | Clinical Summary ---
Author Author [facility] Organization [facility] Address Unknown Phone Unavailable Care Team Providers Care Architectural Model Maker Name Role Phone Obdulia Fisher DO PCP Roel Aragon MD Unavailable Unavailable Silvano Lutz MD Unavailable Unavailable Source Comments Some departments are not documenting in the electronic medical record. If you do not see the information that you expected, contact Release of Information in the Health Information Management department at [phone] for further assistance in locating additional records.[facility] Allergies No Known Allergies Current Medications [...] Taken Blood Pressure 145/91 04/26/2009 8:52 AM TYPESETTER PERFORATOR OPERATOR Pulse 86 04/26/2009 8:52 AM TYPESETTER PERFORATOR OPERATOR Temperature 36.7 C (98 F) 04/26/2009 8:52 AM TYPESETTER PERFORATOR OPERATOR Respiratory Rate - - Oxygen Saturation 98% 03/10/2009 3:30 PM CDT Inhaled Oxygen - - Concentration Weight 114.5 kg (252 lb 6.4 oz) 04/26/2009 8:52 AM TYPESETTER PERFORATOR OPERATOR Height 167.6 cm (5' 6") 04/26/2009 8:52 AM TYPESETTER PERFORATOR OPERATOR Body Mass Index 40.74 04/26/2009 8:52 AM TYPESETTER PERFORATOR OPERATOR Plan of Treatment Health Maintenance Due Date Last Done Comments PHYSICAL (COMPREHENSIVE) 10/31/1991 EXAM PERTUSSIS VACCINE 10/31/1995 TETANUS VACCINE 2001 CERVICAL CANCER SCREENING 2014 INFLUENZA VACCINE 03/23/2018 HIV SCREENING Completed 03/08/2009 Results Not on filefrom Last 3 Months
[2017-11-16] MEDS ORDERED: FAMOTIDINE 20 MG (PEPCID) TABLET PO STA (02:31)
--- NOTE | 2017-11-16 02:35 | ED GI ---
General Chief Complaint: Abdominal/GI Problems Stated Complaint: VOMITING W BLOOD 10 1/2 WKS PG Nursing Triage Note: PT PRESENTS TO ER WITH COMPLAINT OF N/V. STARTS THE VOMITING STARTED ON FRIDAY. PT IS ALSO TEN WKS . UNSURE WHETHER THE N/V IS OR SOMETHING ELSE. Sepsis Screen: No Definite Risk Source of Information: Patient Exam Limitations: No Limitations History of Present Illness Date Seen by Provider: November 16, 2017 Time Seen by Provider: 02:25 Initial Comments The patient resists ER by private conveyance with a chief complaint that she is a on 81 mg aspirin and vitamins at 10 weeks and 3 days with a last missed her period of September 04 and 1st trimester nausea vomiting. She's not been able to take any medicines because of the nausea vomiting. She says she doesn't feel dehydrated, fevers, chills, diarrhea or difficulty urinating. She has not been on antibiotics or had a UTI or anything recently. She is known to Dr. De Anda and has not started anything for nausea. Allergies and Home Medications Allergies Coded Allergies: No Known Drug Allergies (Verified , 03/05/09) Home Medications Doxylamine Succinate/Vit B6 1 Each Tab.ir.dr, 1 EACH PO Q6H PRN for NAUSEA/ VOMITING-1ST LINE Prescribed by: NATHALY PRYOR on 11/16/17 0319 Hydrocodone Bit/Acetaminophen 1 Each Tablet, 2 EACH PO Q6H PRN for PAIN Prescribed by: ZAHIDA DE ANDA on 05/06/17 1405 Ibuprofen 600 Mg Tablet, 600 MG PO Q6H PRN for PAIN Prescribed by: ZAHIDA DE ANDA on 05/06/17 1405 Omeprazole 40 Mg Capsule., 40 MG PO DAILY, (Reported) Patient Home Medication List Home Medication List Reviewed: Yes Review of Systems Constitutional: No chills, No diaphoresis EENTM: No Blurred Vision, No Double Vision Respiratory: Denies Cough, Denies Shortness of Air Cardiovascular: Denies Chest Pain, Denies Lightheadedness Gastrointestinal: Denies Abdomen Distended, Denies Abdominal Pain, Denies Constipated, Denies Diarrhea; Nausea; Denies Poor Appetite; Poor Fluid Intake, Vomiting Genitourinary: Denies Burning, Denies Discharge Musculoskeletal: No back pain, No joint pain Skin: No pruritus, No rash Past Nrpopoy-Ygqxyh-Cmannd Hx Patient Social History Alcohol Use: Denies Use Recreational Drug Use: No Smoking Status: Never a Smoker 2nd Hand Smoke Exposure: No Recent Foreign Travel: No Contact w/Someone Who Travel: No Recent Infectious Disease Expo: No Recent Hopitalizations: No Immunizations Up To Date Date of Influenza Vaccine: Mar 27, 2017 Seasonal Allergies Seasonal Allergies: No Past Medical History Surgeries: Yes Gallbladder Respiratory: No Cardiac: No Neurological: No Reproductive Disorders: No Female Reproductive Disorders: Denies Genitourinary: No Gastrointestinal: Yes Gastroesophageal Reflux, Gall Bladder Disease Musculoskeletal: No Endocrine: No HEENT: No Cancer: No Psychosocial: No Integumentary: No Blood Disorders: No (anemia) Adverse Reaction/Blood Tranf: No (hx of transfusion in 2008) Family Medical History No Pertinent Family Hx Physical Exam Vital Signs Vital Signs - First Documented 11/16/17 01:06 Temp 96.5 Pulse 78 Resp 20 B/P (MAP) 131/76 (94) Pulse Ox 98 O2 Delivery Room Air Capillary Refill : Less Than 3 Seconds General Appearance: WD/WN, no apparent distress HEENT: PERRL/EOMI, pharynx normal Respiratory: no respiratory distress, no accessory muscle use Cardiovascular: normal peripheral pulses, regular rate, rhythm Gastrointestinal: normal bowel sounds, non tender, soft Extremities: non-tender, normal inspection, normal capillary refill Back: normal inspection, no CVA tenderness Neurologic/Psychiatric: alert, oriented x 3 Skin: normal color, warm/dry Progress/Results/Core Measures Results/Orders Lab Results Laboratory Tests Test 11/16/17 01:15 Range/Units Urine Color YELLOW Urine Clarity SLIGHTLY CLOUDY Urine pH 5 5-9 Urine Specific [place] 1.025 H 1.016-1.022 Urine Protein NEGATIVE NEGATIVE Urine Glucose (UA) NEGATIVE NEGATIVE Urine Ketones NEGATIVE NEGATIVE Urine Nitrite NEGATIVE NEGATIVE Urine Bilirubin NEGATIVE NEGATIVE Urine Urobilinogen NORMAL NORMAL MG/DL Urine Leukocyte Esterase 2+ H NEGATIVE Urine RBC (Auto) 1+ H NEGATIVE Urine RBC NONE /HPF Urine WBC 0-2 /HPF Urine Squamous Epithelial Cells >50 H /HPF Urine Crystals PRESENT H /LPF Urine Calcium Oxalate Crystals FEW H /LPF Urine Bacteria MODERATE H /HPF Urine Casts NONE /LPF Urine Mucus MODERATE H /LPF Urine Culture Indicated YES My Orders Orders - NATHALY PRYOR Ondansetron Oral Dissolve Tab (Zofran (11/16/17 02:45) Lidocaine 2% Viscous 15 Ml (Xylocaine Vi (11/16/17 02:45) Famotidine Tablet (Pepcid Tablet) (11/16/17 02:31) Antacid Suspension (Mylanta Suspension (11/16/17 02:45) Ua Culture If Indicated (11/16/17 02:31) Urine Culture (11/16/17 01:15) Medications Given in ED Current Medications Medications Dose Ordered Sig/Alex Route Start Time Stop Time Status Last Admin Dose Admin Al Hydrox/Mg Hydrox/Simethicone 30 ml ONCE ONCE PO 11/16/17 02:45 11/16/17 02:46 DC 11/16/17 03:05 30 ML Lidocaine HCl 15 ml ONCE ONCE PO 11/16/17 02:45 11/16/17 02:46 DC 11/16/17 03:05 15 ML Ondansetron HCl 4 mg ONCE ONCE PO 11/16/17 02:45 11/16/17 02:46 DC 11/16/17 02:44 4 MG Vital Signs/I&O 11/16/17 11/16/17 01:06 03:31 Temp 96.5 96.5 Pulse 78 78 Resp 20 20 B/P (MAP) 131/76 (94) 131/76 (94) Pulse Ox 98 98 O2 Delivery Room Air Blood Pressure Mean: 94 Progress Progress Note : Time: 03:14 Progress Note Her nausea is gone. Urinalysis is unremarkable. We'll put her on some doxylamine and pyridoxine for first trimester nausea vomiting and have her follow-up with Dr. De Anda. Departure Impression Primary Impression: Nausea and vomiting Qualified Codes: R11.2 - Nausea with vomiting, unspecified Additional Impression: Qualified Codes: Z3A.10 - 10 weeks gestation of Disposition: 01 HOME, SELF-CARE Condition: Improved Departure-Patient Inst. Decision time for Depature: 03:16 Referrals: JOHNNIE GONZALEZ DO (PCP) Primary Care Physician ARISTEO BASSETT (Family) Primary Care Physician Patient Instructions: Nausea and Vomiting of (DC) Add. Discharge Instructions: health occupations teacher the medication and take one tablet every 6 hours as needed for nausea and vomiting. Follow-up with Dr. De Anda as necessary. All discharge instructions reviewed with patient and/or family. Voiced understanding. Scripts Doxylamine Succinate/Vit B6 (Bonjesta ER 20-20 mg Tablet) 1 Each Tab.ir.dr 1 EACH PO Q6H PRN for NAUSEA/VOMITING-1ST LINE for 31 Days, #30 TAB 0 Refills Prov: NATHALY PRYOR 11/16/17 Copy Copies To 1: JOHNNIE GONZALEZ DO; ZAHIDA DE ANDA TITUS J November 16, 2017 02:35
[2017-11-16 02:37] LABS: BILIRUBIN,URINE NEGATIVE (NEGATIVE); COLOR,URINE YELLOW; GLUCOSE, URINE (UA) NEGATIVE (NEGATIVE); KETONES,URINE NEGATIVE (NEGATIVE); LEUKOCYTE ESTERASE ,URINE 2+ (NEGATIVE); NITRITE,URINE NEGATIVE (NEGATIVE); PH,URINE 5 (5-9); PROTEIN,URINE NEGATIVE (NEGATIVE); UROBILINOGEN,URINE NORMAL (NORMAL)
[2017-11-16] MEDS ORDERED: ONDANSETRON 4 MG (ZOFRAN) ORAL DISSOLVE TAB PO ONE (02:45)
[2017-11-16] MEDS ORDERED: ANTACID SUSP 30 ML UDC (MYLANTA) PO ONE (02:45)
[2017-11-16] MEDS ORDERED: LIDOCAINE 2% VISCOUS 15 ML UDC PO ONE (02:45)
[2017-11-16 02:46] LABS: CLARITY,URINE SLIGHTLY CLOUDY
[2017-11-16 02:48] LABS: BACTERIA,URINE MODERATE /HPF; CALCIUM OXALATE CRYSTALS,UR FEW /LPF; SQUAMOUS EPITHELIAL CELL,UR >50 /HPF; WBC,URINE 0-2 /HPF
[2017-11-16] MEDS ORDERED: DOXY1TAB6 PO (03:19)
[2017-11-16 03:31] VITALS: BP 131/76
== END 2017-11-16 03:31 | disposition home or self-care (01) ==
LOC: EDUNIT# 00:31 → ER 00:35
DX: O21.9 Vomiting of pregnancy, unspecified (principal); O99.611 Diseases of the digestive system complicating pregnancy, first trimester; K21.9 Gastro-esophageal reflux disease without esophagitis; O99.011 Anemia complicating pregnancy, first trimester; D64.9 Anemia, unspecified; Z79.82 Long term (current) use of aspirin; Z98.890 Other specified postprocedural states; Z87.19 Personal history of other diseases of the digestive system; Z3A.10 10 weeks gestation of pregnancy
CPT/HCPCS: 81000; 87088; 99283

== ENCOUNTER 2017-12-28 23:31 | Emergency (ER) | payer MEDICAID ==
[~2017-12-28] VITALS: Ht 170.2 cm; Wt 108.0 kg
[~2017-12-28 23:31] MED LIST changes: +DOXY1TAB6 PO
--- OUTSIDE RECORDS SUMMARY | 2017-12-28 23:38 | XMS REPORT | Encounter Summary ---
Author Author [facility] Organization [facility] Address Unknown Phone Unavailable Care Team Providers Care Metal Tile Setter Name Role Phone Obdulia Fisher PCP Roel Aragon MD Unavailable Unavailable Silvano Lutz MD Unavailable Unavailable Reason for Visit * Reason Comments Other Anti-Fya * Consult, Test & Treat (Routine) Status Reason Specialty Diagnoses / Referred By Referred To Procedures Contact Contact No Auth Needed Obstetrics & Diagnoses [place] Charter Bus Driver Cafc Gynecology / High CONSULT/ABN 5TH FLOOR POD C Risk ANTIBODY TITERS [address] P MED OFFICE [place]LD[place] rocedures [place], [place] [address] Encounter Details Date Type Department Care Team Description 12/15/2017 Office Visit [facility] Kaci Yadav MD High -risk in Physicians - OBGYN [address] first trimester (Primary 5TH [place] [address] Dx) [address] MED [phone] [place] [address] Social History Tobacco Use Types Packs/Day Years Used Date Never Smoker Smokeless Tobacco: Never Used Sex Assigned at Date Recorded Not on file as of this encounter Last Filed Vital Signs Vital Sign Reading Time Taken Blood Pressure 134/83 12/15/2017 9:54 AM CDT Pulse 98 12/15/2017 9:54 AM CDT Temperature - - Respiratory Rate - - Oxygen Saturation - - Inhaled Oxygen - - Concentration Weight 109.9 kg (242 lb 3.2 oz) 12/15/2017 9:54 AM CDT Height 167.6 cm (5' 6") 12/15/2017 9:54 AM CDT Body Mass Index 39.09 12/15/2017 9:54 AM CDT in this encounter Progress Notes * Calli Yoon MA - 12/15/2017 10:00 AM CDT 1. Have you or your sexual partner traveled away from [place] in the last 12 weeks? No * Kaci Yadav MD - 12/15/2017 10:00 AM CDT Formatting of this note may be different from the original. administrative law judge - Initial Visit HPI: Loretta Castaneda is a 32 y.o. F @ 14w1d by L=14. She presents today as a referral from Dr. Dong for an initial HR appt for anti-Fya titer. This was noted on PNL, titer is 1:32. She did receive a blood transfusion (2 units) when she was about 19 years old due to anemia 2/2 heavy periods. Since then her bleeding as regularized. She has had 3 miscarriages, but never has had a workup for recurrent loss. (too early) FM, -VB, -CTX, -LOF Obstetrical History: Year GA Delivery Wt Notes/Complications 2018 current 2016 5 2014 5 Gynecologic History: Pap: denies abnormal STDs: denies Past Medical History: Patient denies history of Asthma, DM, HTN, bleeding or clotting disorders, IBS, endometriosis Past Surgical History: Lap cholecystectomy Patient denies prior procedures on the cervix, uterus, ovaries, fallopian tubes Denies h/o ectopic Family History: Family History Problem Relation Age of Onset Hypertension Mother Heart Disease grandparents Patient denies family history of CF, Sickle cell, SMA, congential malformations bleeding or clotting disorders, SIDS Social History: Denies tobacco, EtOH, drugs Allergies: No Known Allergies Medications: No current outpatient prescriptions on file prior to visit. No current facility-administered medications on file prior to visit. Objective: See ACOG. Vitals: 12/15/17 0954 BP: 134/83 Pulse: 98 Weight: 109.9 kg (242 lb 3.2 oz) Height: 167.6 cm (66") vitals Gen: NAD CV: regular rate Lungs: non-labored Abd: soft, nttp Ext: no LE edema, nttp BLE SSE: deferred SVE: deferred Labs: Blood type A POS Ab positive Rubella Immune HepB not provided Syph B neg GC/CT -/+ HIV neg Urine culture not compelted Hgb A1c not completed Assessment 32 y.o. F @ 14w1d by L=14. Estimated Date of Delivery: None noted. Chlamydia during Anti-Fya titer A POS, RI P: Anti-Fya titer: 1:32 on 12/02 Most likely due to blood transfusion This antibody can cause mild to severe hemolytic disease of the . Therefore, recommend monitoring MCA started at 18-20 weeks Depending on whether MCA is normal or abnormal will determine further testing. We will follow up MCA result : PNV PNLs, urine culture reviewed Cervical cancer screening - normal per patient G/C (can do urine at next appt if pt doesn't need pap) NT @[id number] at primary Recommend msAFP @16-22wga Detailed US @20-22wga 2hr GTT, CBC, Ab screen, syph ab @28 wks Recommend Tdap in 3rd trimester Collect GBS @35wga PP BCM: per primary Delivery: per primary Third trimester anesthesia consult needed: no Encounter Medications Medications vit calc,iron,folic ( VITAMIN PO) Sig: Take by mouth. aspirin 81 mg chewable tablet Sig: Chew 81 mg by mouth daily. Take with food. Future Appointments Date Time Provider Department Center 01/12/2018 11:30 AM [facility]BGYN [facility] Kaci Yadav MD PGY1 Obstetrics and Gynecology Patient was seen and discussed with Dr. Vazquez Attending Attestation I was present and participated in the discussion and evaluation of the patient and agree with 's note as documented. 15 minutes of face to face time was spent with the patient of which >50% of that time was directed toward counseling and coordinating her care. Dr Philip Vazquez in this encounter Plan of Treatment Not on fileas of this encounter Results * POC URINE DIPSTICK MANUAL READ (12/15/2017 9:58 AM) Component Value Ref Range Urine Glucose POC negComment: Lot#[id number] exp-12/20/2018 Urine Bilirubin POC Urine Ketone POC neg Urine Specific [place] POC Urine Blood POC neg Urine PH POC Urine Protein POC neg Urine Urobilinogen POC Urine Nitrite POC Urine Leukocytes POC neg Color,UA Turbidity,UA Specimen Performing Laboratory Urine IN CLINIC in this encounter Visit Diagnoses Diagnosis High-risk in first trimester - Primary
--- OUTSIDE RECORDS SUMMARY | 2017-12-28 23:38 | XMS REPORT | Encounter Summary ---
Author Author [facility] Organization [facility] Address Unknown Phone Unavailable Care Team Providers Care Hydroelectric Plant Technician Name Role Phone Obdulia Fisher DO PCP Roel Aragon MD Unavailable Unavailable Silvano Lutz MD Unavailable Unavailable Reason for Visit * Reason Comments Ultrasound * Consult, Test & Treat (Routine) Status Reason Specialty Diagnoses / Referred By Referred To Procedures Contact Contact No Auth Needed Obstetrics & Diagnoses [facility] Financial Aid Counselor Cafc Gynecology / High CONSULT/ABN 5TH FLOOR POD C Risk ANTIBODY TITERS [address] P MED OFFICE [facility] [place] [address] Encounter Details Date Type Department Care Team Description 12/15/2017 Clinical [facility] Abnormal antibody titer Support Physicians - OBGYN 5TH FLOOR POD C [address] [place] [address] Social History Tobacco Use Types Packs/Day Years Used Date Never Smoker Smokeless Tobacco: Never Used Sex Assigned at Date Recorded Not on file as of this encounter Progress Notes * Kassie Ching MA - 12/15/2017 9:30 AM CDT Loretta Rick presents for an ultrasound encounter. Past Medical, Surgical, Family & Social History; Medications & Allergies contained in the electronic record below were not reviewed today and may not be up-to-date. Please see A/S OBGYN report for all documentation related to this encounter. 12/19/2017 Kassie Ching MA in this encounter Plan of Treatment Not on fileas of this encounter Results * ULTRASOUND [facility]INIC ORDER (12/15/2017) Specimen Performing Laboratory IN CLINIC in this encounter Visit Diagnoses Diagnosis Abnormal antibody titer Other and unspecified nonspecific immunological findings
--- OUTSIDE RECORDS SUMMARY | 2017-12-28 23:38 | XMS REPORT | Encounter Summary ---
Author Author [facility] Organization [facility] Address Unknown Phone Unavailable Care Team Providers Care Motor Coach Supervisor Name Role Phone Obdulia Fisher PCP Roel Aragon MD Unavailable Unavailable Silvano Lutz MD Unavailable Unavailable Reason for Visit * Reason Comments Results Encounter Details Date Type Department Care Team Description 12/25/2017 Telephone [facility] Kassandra Alfred MD ; Results Physicians - OBGYN [address] 5[place] [address] MED [phone] [place] [address] Social History Tobacco Use Types Packs/Day Years Used Date Never Smoker Smokeless Tobacco: Never Used Sex Assigned at Date Recorded Not on file as of this encounter Miscellaneous Notes * Telephone Encounter - Grecia Bonds RN - 12/25/2017 3:[address] Kassandra Dong called regarding the consult by Dr. Yadav and Dr. Ortega on . Dr. Dong noticed that it was documented that the patient had not been worked up for multiple losses, per Dr. Dong, this workup has been completed. She will forward records [facility]. Dr. Yadav notified. in this encounter Plan of Treatment Not on fileas of this encounter Visit Diagnoses Not on filein this encounter
--- OUTSIDE RECORDS SUMMARY | 2017-12-28 23:38 | XMS REPORT | Encounter Summary ---
Author Author [facility] Organization [facility] Address Unknown Phone Unavailable Care Team Providers Care Maintenance Scheduler Name Role Phone Sophie Fishera PCP Roel Aragon MD Unavailable Unavailable Silvano Lutz MD Unavailable Unavailable Encounter Details Date Type Department Care Team Description 12/12/2017 Orders Only [facility] Philip Vazquez DO Abnormal antibody titer Physicians - OBGYN [address] (Primary Dx) 5TH [place] [address] MED [phone] [place] [address] Social History Tobacco Use Types Packs/Day Years Used Date Never Assessed Sex Assigned at Date Recorded Not on file as of this encounter Plan of Treatment Not on fileas of this encounter Results * ULTRASOUND [facility] ORDER (12/15/2017) Specimen Performing Laboratory IN CLINIC in this encounter Visit Diagnoses Diagnosis Abnormal antibody titer - Primary Other and unspecified nonspecific immunological findings
--- OUTSIDE RECORDS SUMMARY | 2017-12-28 23:38 | XMS REPORT | Clinical Summary ---
Author Author [facility] Organization [facility] Address Unknown Phone Unavailable Care Team Providers Care Abap Developer Name Role Phone PhillipObdulia PCP Roel Aragon MD Unavailable Unavailable Silvano Lutz MD Unavailable Unavailable Source Comments Some departments are not documenting in the electronic medical record. If you do not see the information that you expected, contact Release of Information in the Health Information Management department at [phone] for further assistance in locating additional records.[facility] Allergies No Known Allergies Current Medications Prescription Sig. Disp. Refills Start End Date Status Date vit Take by mouth. Active calc,iron,folic ( VITAMIN PO) aspirin 81 mg chewable Chew 81 mg by mouth Active tablet daily. Take with food. ACETAMINOPHEN (TYLENOL Take 650 mg by mouth 12/16/19 Discontin PO) Every 4-6 Hours as 18 ued needed. ferrous sulfate 325 mg Take 1 Tab by mouth Four 120 5 03/10/2012/15 Discontin (65 mg Iron) tablet Times Daily. 18 ued senna/docusate Take 1 Tab by mouth Twice 60 5 03/10/20 12/16/19 Discontin (SENOKOT-S) 8.6/50 mg Daily. 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 Abdominal pain 03/08/2009 Acute kidney failure (HCC) 03/08/2009 UTI 03/08/2009 Encounters Date Type Specialty Care Team Description 12/25/2017 Telephone High Risk Kassandra Alfred MD ; Results 12/15/2017 Office Visit High Risk Kaci Yadav MD High- risk in first trimester (Primary Dx) 12/15/2017 Clinical High Risk Abnormal antibody titer Support 12/12/2017 Orders Only High Risk Philip Vazquez DO Abnormal antibody titer (Primary Dx) from Last 3 Months Family History Medical History Relation Name Comments Hypertension Mother Heart Disease grandparents Relation Name Status Comments Mother Social History Tobacco Use Types Packs/Day Years Used Date Never Smoker Smokeless Tobacco: Never Used Currently Estimated Date of Delivery Comments Yes Sex Assigned at Date Recorded Not on file Last Filed Vital Signs Vital Sign Reading Time Taken Blood Pressure 134/83 12/15/2017 9:54 AM CDT Pulse 98 12/15/2017 9:54 AM CDT Temperature 36.7 C (98 F) 04/26/2009 8:52 AM SOFTWARE DEVELOPMENT COORDINATOR Respiratory Rate - - Oxygen Saturation 98% 03/10/2009 3:30 PM CDT Inhaled Oxygen - - Concentration Weight 109.9 kg (242 lb 3.2 oz) 12/15/2017 9:54 AM CDT Height 167.6 cm (5' 6") 12/15/2017 9:54 AM CDT Body Mass Index 39.09 12/15/2017 9:54 AM CDT Plan of Treatment Health Maintenance Due Date Last Done Comments PHYSICAL (COMPREHENSIVE) 10/31/1991 EXAM PERTUSSIS VACCINE 10/31/1995 TETANUS VACCINE 2001 CERVICAL CANCER SCREENING 2014 INFLUENZA VACCINE 03/23/2018 HIV SCREENING Completed 03/08/2009 Results * POC URINE DIPSTICK MANUAL READ (12/15/2017 9:58 AM) Component Value Ref Range Urine Glucose POC negComment: Lot#[id number] exp-12/20/2018 Urine Bilirubin POC Urine Ketone POC neg Urine Specific [place] POC Urine Blood POC neg Urine PH POC Urine Protein POC neg Urine Urobilinogen POC Urine Nitrite POC Urine Leukocytes POC neg Color,UA Turbidity,UA Specimen Performing Laboratory Urine IN CLINIC * ULTRASOUND [facility] ORDER (12/15/2017) Specimen Performing Laboratory IN CLINIC from Last 3 Months
--- NOTE | 2017-12-28 23:47 | ED GU-Female ---
General Chief Complaint: -Female Stated Complaint: FREQ URINE NO OUTPUT NO BOWEL LOWER BACK PAIN Nursing Triage Note: patient reports lower back pain with urinary frequency and retention. patient reports is about 16 weeks gestation Nursing Sepsis Screen: No Definite Risk Source: patient Exam Limitations: no limitations History of Present Illness Date Seen by Provider: Dec 28, 2017 Time Seen by Provider: 23:35 Initial Comments Here with report of constipation and difficulty with urination. Patient reports that she is approximately 16 weeks . She has recently changed her vitamin due to intolerance causing vomiting previously she is able to tolerate this vitamin more but now appears to have constipation. She states that she has not had bowel movement in 3 days. Also reports dysuria and frequency with small amounts. No vaginal bleeding or discharge. Timing/Duration: week, getting worse Severity/Quality: mild, moderate, aching, burning Location: urethral, other (back) Radiation: none Activities at Onset: none Modifying Factors: Improves With Defecating; Worsens With Urinating Associated Symptoms: No abdominal pain; dysuria; No fever/chills; lower back pain; No nausea/vomiting; urinary frequency Allergies and Home Medications Allergies Coded Allergies: No Known Drug Allergies (Verified , 03/05/09) Home Medications Doxylamine Succinate/Vit B6 1 Each Tab.ir.dr, 1 EACH PO Q6H PRN for NAUSEA/ VOMITING-1ST LINE Prescribed by: NATHALY PRYOR on 11/16/17 0319 Hydrocodone Bit/Acetaminophen 1 Each Tablet, 2 EACH PO Q6H PRN for PAIN Prescribed by: ZAHIDA DE ANAD on 05/06/17 1405 Ibuprofen 600 Mg Tablet, 600 MG PO Q6H PRN for PAIN Prescribed by: ZAHIDA DE ANDA on 05/06/17 1405 Omeprazole 40 Mg Capsule.dr, 40 MG PO DAILY, (Reported) Patient Home Medication List Home Medication List Reviewed: Yes Review of Systems Constitutional: see HPI; No chills, No fever EENTM: no symptoms reported Respiratory: no symptoms reported Cardiovascular: no symptoms reported Gastrointestinal: no symptoms reported Genitourinary: see HPI, burning, frequency : Yes Musculoskeletal: back pain; No muscle pain Past Nlowxlg-Ndmcvy-Kfpmlg Hx Past Med/Social Hx: Reviewed Nursing Past Med/Soc Hx Patient Social History Alcohol Use: Denies Use Recreational Drug Use: No 2nd Hand Smoke Exposure: No Recent Foreign Travel: No Contact w/Someone Who Travel: No Recent Infectious Disease Expo: No Recent Hopitalizations: No Immunizations Up To Date Date of Influenza Vaccine: Mar 27, 2017 Seasonal Allergies Seasonal Allergies: No Past Medical History Surgeries: Yes Gallbladder Respiratory: No Cardiac: No Neurological: No Reproductive Disorders: No Female Reproductive Disorders: Denies Genitourinary: No Gastrointestinal: Yes Gastroesophageal Reflux, Gall Bladder Disease Musculoskeletal: No Endocrine: No HEENT: No Cancer: No Psychosocial: No Integumentary: No Blood Disorders: No (anemia) Adverse Reaction/Blood Tranf: No (hx of transfusion in 2008) Family Medical History Reviewed Nursing Family Hx No Pertinent Family Hx Physical Exam Vital Signs Vital Signs - First Documented 12/28/17 23:36 Temp 98.1 Pulse 81 Resp 18 B/P (MAP) 148/93 (111) Pulse Ox 100 Capillary Refill : Less Than 3 Seconds Height, Weight, BMI Height: 5', 7.00" Weight: 238lbs 0.0oz, [id number] Method:Stated ,34.5BMI General Appearance: WD/WN, no apparent distress Cardiovascular: regular rate, rhythm, no murmur Respiratory: lungs clear, normal breath sounds Gastrointestinal: non tender, soft, other (gravid uterus to level below umbilicus) Back: normal inspection, no CVA tenderness, no vertebral tenderness Neurologic/Psychiatric: alert, oriented x 3 Skin: normal color, warm/dry Progress/Results/Core Measures Suspected Sepsis Recent Fever Within 48 Hours: No Infection Criteria Present: None New/Unexplained Altered Menta: No Sepsis Screen: No Definite Risk SIRS Temperature:98.1 Pulse: 81 Respiratory Rate: 18 Blood Pressure 148 /93 Mean: 111 Results/Orders Lab Results Laboratory Tests Test 12/28/17 23:40 Range/Units Urine Color YELLOW Urine Clarity CLEAR Urine pH 6 5-9 Urine Specific [place] 1.020 1.016-1.022 Urine Protein 1+ H NEGATIVE Urine Glucose (UA) NEGATIVE NEGATIVE Urine Ketones NEGATIVE NEGATIVE Urine Nitrite NEGATIVE NEGATIVE Urine Bilirubin NEGATIVE NEGATIVE Urine Urobilinogen NORMAL NORMAL MG/DL Urine Leukocyte Esterase 1+ H NEGATIVE Urine RBC (Auto) 5+ H NEGATIVE Urine RBC 50-100 H /HPF Urine WBC 2-5 /HPF Urine Squamous Epithelial Cells 2-5 /HPF Urine Crystals NONE /LPF Urine Bacteria FEW H /HPF Urine Casts NONE /LPF Urine Mucus SMALL H /LPF Urine Culture Indicated YES My Orders Orders - MONIQUE MORENO MD Ua Culture If Indicated (12/28/17 23:41) Urine Culture (12/28/17 23:40) Vital Signs/I&O 12/28/17 23:36 Temp 98.1 Pulse 81 Resp 18 B/P (MAP) 148/93 (111) Pulse Ox 100 Capillary Refill : Less Than 3 Seconds Blood Pressure Mean: 111 Progress Note : Progress Note Seen and evaluated. UA ordered. Bedside ultrasound performed by me. Positive movement with heart rate approximately 135. Femur length shows approximately 15-3/7-16-/7 weeks. This is consistent with dates. 1208: Patient's urine results noted. There is a little blood in the urine but patient is on aspirin due to high risk and this may be somewhat confounding the results. It also looks that she probably has urinary tract infection. We will treat that. I did discuss with her about outpatient therapy for constipation including MiraLAX and fluids. She will try that and follow-up with her OB doctor this week. I will send a copy of the chart to Dr. De Anda. Discharged home with return precautions. Patient verbalize understanding instructions and agreement with plan. Departure Impression Primary Impression: Urinary tract infection Qualified Codes: N30.01 - Acute cystitis with hematuria Additional Impression: Constipation Qualified Codes: K59.00 - Constipation, unspecified Disposition: HOME, SELF-CARE Condition: Improved Departure-Patient Inst. Decision time for Depature: 00:09 Referrals: JOHNNIE GONZALEZ DO (PCP) Primary Care Physician ARISTEO BASSETT (Family) Primary Care Physician Patient Instructions: Constipation, Adult (DC), Urinary Tract Infection, Adult (DC) Add. Discharge Instructions: All discharge instructions reviewed with patient and/or family. Voiced understanding. You may take MiraLAX or the generic one capful twice daily for the next 3 days and then one half capful twice daily thereafter to keep stools soft. You may increase or decrease dose as needed to keep stools in normal range. Drink plenty of fluid. Follow-up with your events specialist this week for recheck and further evaluation. Return for worse pain, fever, vomiting, weakness, breathing problems or other concerns as needed. Take medications as directed. Scripts Cephalexin (Cephalexin) 500 Mg Tablet 500 MG PO BID, #13 TAB 0 Refills Prov: MONIQUE MORENO MD 12/29/17 Copy Copies To 1: ZAHIDA DE ANDA TIMOTHY D MD Dec 28, 2017 23:47
[2017-12-28 23:49] LABS: BILIRUBIN,URINE NEGATIVE (NEGATIVE); CLARITY,URINE CLEAR; COLOR,URINE YELLOW; GLUCOSE, URINE (UA) NEGATIVE (NEGATIVE); KETONES,URINE NEGATIVE (NEGATIVE); LEUKOCYTE ESTERASE ,URINE 1+ (NEGATIVE); NITRITE,URINE NEGATIVE (NEGATIVE); PH,URINE 6 (5-9); PROTEIN,URINE 1+ (NEGATIVE); UROBILINOGEN,URINE NORMAL (NORMAL)
[2017-12-28 23:59] LABS: BACTERIA,URINE FEW /HPF; RBC,URINE 50-100 /HPF
[2017-12-29] MEDS ORDERED: CEPH500T PO (00:10)
[2017-12-29] MEDS ORDERED: CEPHALEXIN 250 MG (KEFLEX) CAP PO STA (00:11)
[2017-12-29 00:18] VITALS: BP 148/93
== END 2017-12-29 00:18 | disposition home or self-care (01) ==
LOC: EDUNIT# 23:31 → ER 23:34
DX: O23.42 Unspecified infection of urinary tract in pregnancy, second trimester (principal); O99.612 Diseases of the digestive system complicating pregnancy, second trimester; K59.00 Constipation, unspecified; K21.9 Gastro-esophageal reflux disease without esophagitis; Z3A.16 16 weeks gestation of pregnancy
CPT/HCPCS: 81000; 87077; 87088; 87186; 99283

== ENCOUNTER 2018-04-29 19:22 | Outpatient (CLI) | payer MEDICAID ==
[~2018-04-29] VITALS: Ht 170.2 cm; Wt 118.9 kg
[~2018-04-29 19:22] MED LIST changes: +CEPH500T PO; -OXYC-197 PO; +OXYC1TAB87 PO
[2018-04-29 19:40] VITALS: BP 128/78
[2018-04-29] MEDS ORDERED: FERR-84 PO (19:49)
[2018-04-29] MEDS ORDERED: ASPI-586 PO (19:49)
[2018-04-29] MEDS ORDERED: PREN-142 PO (19:50)
[2018-04-29 20:18] LABS: BASOPHILS % (AUTO) 0 % (0-10); EOSINOPHILS # (AUTO) 0.1 10^3/uL (0.0-0.3); EOSINOPHILS % (AUTO) 1 % (0-10); HEMATOCRIT 31 % (35-52); HEMOGLOBIN 10.4 G/DL (11.5-16.0); LYMPHOCYTES % (AUTO) 18 % (12-44); MEAN CORPUSCULAR HEMOGLOBIN 31 PG (25-34); MEAN CORPUSCULAR HGB CONC 34 G/DL (32-36); MEAN CORPUSCULAR VOLUME 91 FL (80-99); MEAN PLATELET VOLUME 9.8 FL (7.4-10.4); MONOCYTES # (AUTO) 0.6 X 10^3 (0.0-1.0); MONOCYTES % (AUTO) 6 % (0-12); NEUTROPHILS # (AUTO) 8.4 X 10^3 (1.8-7.8); NEUTROPHILS % (AUTO) 76 % (42-75); PLATELET COUNT 318 10^3/uL (130-400); RED BLOOD COUNT 3.37 10^6/uL (4.35-5.85); RED CELL DISTRIBUTION WIDTH 14.2 % (10.0-14.5); WHITE BLOOD COUNT 11.1 10^3/uL (4.3-11.0)
[2018-04-29 20:33] LABS: BAND NEUTROPHILS 2 %; BASOPHILS % (MANUAL) 0 %; EOSINOPHILS % (MANUAL) 1 %; LYMPHOCYTES % (MANUAL) 30 %; METAMYELOCYTES % 1 %; MONOCYTES % (MANUAL) 5 %; NEUTROPHILS % (MANUAL) 61 %; RBC MORPH NORMAL
[2018-04-29 20:48] LABS: BILIRUBIN,URINE NEGATIVE (NEGATIVE); CLARITY,URINE CLEAR; COLOR,URINE YELLOW; GLUCOSE, URINE (UA) NEGATIVE (NEGATIVE); KETONES,URINE NEGATIVE (NEGATIVE); LEUKOCYTE ESTERASE ,URINE 1+ (NEGATIVE); NITRITE,URINE NEGATIVE (NEGATIVE); PH,URINE 6 (5-9); PROTEIN,URINE 1+ (NEGATIVE); UROBILINOGEN,URINE NORMAL (NORMAL)
[2018-04-29 20:49] LABS: CALCIUM OXALATE CRYSTALS,UR FEW /LPF
--- NOTE | 2018-04-30 13:27 | Physician Query-Final Dx ---
BRIDGET GANT 04/30/18 1327: Clinic Account Progress/Dx Physician Query: Please give a diagnosis and include the weeks of gestation if known thank you Date of Service Apr 29, 2018 at 19:22 BETH BARRERA MD 05/01/18 1506: Clinic Account Progress/Dx DIAGNOSIS: Diagnosis FALSE LABOR AT 32 WEEKS GESTATION BRIDGET GANT Apr 30, 2018 13:27 BETH BARRERA MD May 01, 2018 15:06
== END 2018-04-29 21:00 | disposition home or self-care (01) ==
LOC: WSo 19:22 → LDRP 19:22 → WSo 21:00
PROVIDERS: ATTEND Obstetrics & Gynecology
DX: O47.03 False labor before 37 completed weeks of gestation, third trimester (principal); Z3A.32 32 weeks gestation of pregnancy
CPT/HCPCS: 36415; 81000; 85007; 85027; 90471; 99213

== ENCOUNTER 2018-05-19 12:02 | Outpatient (CLI) | payer MEDICAID ==
[~2018-05-19 12:02] MED LIST changes: +ASPI-586 PO; +FERR-84 PO; +PREN-142 PO
[2018-05-19] MEDS ORDERED: DOCU-143 PO (12:22)
[2018-05-19] MEDS ORDERED: FAMO-119 PO (12:22)
[2018-05-19 12:55] VITALS: BP 126/86
--- NOTE | 2018-05-19 13:57 | Diagnostic Imaging Report ---
TIME OF STUDY: 05/19/2018 1:24 PM INDICATION: Decreased movement. COMPARISON: None. TECHNIQUE: Transabdominal sonogram was performed. GESTATIONAL AGE: 36 weeks, 4 days GENERAL EVALUATION: Presentation: Cephalic Placenta: Anterior Cardiac activity: 155 bpm Amniotic fluid index: The total STEPHEN is 17.9 cm. The largest vertical pocket measures 7.3 cm. The cervix is not seen due to lie. BIOPHYSICAL PROFILE SCORING: tone: 2 movement: 2 breathin Amniotic fluid: 2 TOTAL SCORE: 8 out of 8 FINDINGS/IMPRESSION: 1. Single live intrauterine gestation with biophysical profile score of 8 out of 8. Dictated by: Dictated on workstation # [id number]
== END 2018-05-19 13:52 | disposition home or self-care (01) ==
LOC: LDRP 12:02 → WSo 12:02
PROVIDERS: ATTEND Obstetrics & Gynecology
DX: O36.8130 Decreased fetal movements, third trimester, not applicable or unspecified (principal); Z3A.36 36 weeks gestation of pregnancy
CPT/HCPCS: 59025; 76819

== ENCOUNTER 2018-06-08 19:58 | Inpatient (IN) | payer MEDICAID ==
[~2018-06-08] VITALS: Ht 170.2 cm; Wt 124.1 kg
[~2018-06-08 19:58] MED LIST changes: +DOCU-143 PO; +FAMO-119 PO
[2018-06-08] MEDS ORDERED: ZOLPIDEM 5 MG (AMBIEN) TAB PO PRN (20:30)
[2018-06-08] MEDS ORDERED: MISOPROSTOL 100 MCG (CYTOTEC) TAB PO ONE (20:30)
[2018-06-08] MEDS ORDERED: MINERAL OIL CONCENTRATE 99.9% 15 ML UDC TOP PRN (20:30)
[2018-06-08] MEDS ORDERED: morphine INJ 10 MG/ML 1ML (SYR OR VIAL) IVP PRN (20:30)
[2018-06-08] MEDS: LACTATED RINGERS 1,000 ML IV SCH (20:33)
[2018-06-08 20:49] LABS: BILIRUBIN,URINE NEGATIVE (NEGATIVE); CLARITY,URINE CLEAR; COLOR,URINE YELLOW; GLUCOSE, URINE (UA) NEGATIVE (NEGATIVE); KETONES,URINE NEGATIVE (NEGATIVE); LEUKOCYTE ESTERASE ,URINE 1+ (NEGATIVE); NITRITE,URINE NEGATIVE (NEGATIVE); PH,URINE 6.5 (5-9); PROTEIN,URINE 1+ (NEGATIVE); UROBILINOGEN,URINE 1 MG/DL (NORMAL)
[2018-06-08 20:50] LABS: BASOPHILS % (AUTO) 0 % (0-10); EOSINOPHILS # (AUTO) 0.1 10^3/uL (0.0-0.3); EOSINOPHILS % (AUTO) 1 % (0-10); HEMATOCRIT 34 % (35-52); HEMOGLOBIN 11.4 G/DL (11.5-16.0); LYMPHOCYTES # (AUTO) 1.8 X 10^3 (1.0-4.0); LYMPHOCYTES % (AUTO) 19 % (12-44); MEAN CORPUSCULAR HEMOGLOBIN 31 PG (25-34); MEAN CORPUSCULAR HGB CONC 34 G/DL (32-36); MEAN CORPUSCULAR VOLUME 92 FL (80-99); MEAN PLATELET VOLUME 10.9 FL (7.4-10.4); MONOCYTES # (AUTO) 0.7 X 10^3 (0.0-1.0); MONOCYTES % (AUTO) 8 % (0-12); NEUTROPHILS % (AUTO) 73 % (42-75); PLATELET COUNT 299 10^3/uL (130-400); RED BLOOD COUNT 3.68 10^6/uL (4.35-5.85); RED CELL DISTRIBUTION WIDTH 15.3 % (10.0-14.5); WHITE BLOOD COUNT 9.6 10^3/uL (4.3-11.0)
[2018-06-08 21:00] VITALS: BP 123/98
[2018-06-08 21:01] LABS: BACTERIA,URINE FEW /HPF
[2018-06-08] MEDS: D5 LR IV SOLUTION 1,000 ML IV SCH (21:36)
[2018-06-08 21:40] VITALS: BP 131/70
[2018-06-08] MEDS ORDERED: NS IV 1000 ML 1,000 ML ONE (21:54)
[2018-06-08] MEDS: NS IV 1000 ML 1,000 ML IV ONE ×2 (21:57→23:07)
[2018-06-08 21:58] VITALS: BP 131/84
[2018-06-08 23:00] VITALS: BP 131/64
[2018-06-08] MEDS: CATHETER FLUSH 10 ML SYR IV SCH (23:18)
[2018-06-09] VITALS (75 sets, daily range): BP systolic 113–156; BP diastolic 55–98
[2018-06-09] MEDS ORDERED: MISOPROSTOL 100 MCG (CYTOTEC) TAB PO SCH (00:30)
[2018-06-09] MEDS: LACTATED RINGERS 1,000 ML IV SCH (03:05)
[2018-06-09] MEDS ORDERED: SUFENTA 0.6MCG/ML BUPIVA 0.125 100 ML ONE (03:05)
[2018-06-09] MEDS ORDERED: fentaNYL INJECTION 100 MCG/2 ML AMP ONE (03:36)
[2018-06-09] MEDS: EPIDURAL (SUFENTA 0.6MCG/ML BUPIVA 0.125%) 100 ML BAG EPI PRN ×2 (03:55→11:14)
[2018-06-09] MEDS ORDERED: BUPIVACAINE 0.25% 30 ML (SENSORCAINE) VIAL ONE (03:58)
[2018-06-09] MEDS ORDERED: LIDOCAINE PF 2% 5 ML (XYLOCAINE) VIAL ONE (03:58)
[2018-06-09] MEDS ORDERED: LACTATED RINGERS 1,000 ML IV ONE ×2 (03:58)
[2018-06-09] MEDS ORDERED: NALOXONE 0.4 MG/ML 1 ML (NARCAN) VIAL IV PRN (04:00)
[2018-06-09] MEDS ORDERED: ONDANSETRON 4 MG/2 ML (SDV) Z0FRAN IV PRN (04:00)
[2018-06-09] MEDS ORDERED: METOCLOPRAMIDE INJ 10 MG/2 ML (REGLAN) IV PRN (04:00)
[2018-06-09] MEDS: D5 LR IV SOLUTION 1,000 ML IV SCH ×2 (04:20→10:14)
[2018-06-09] MEDS ORDERED: MISOPROSTOL 100 MCG (CYTOTEC) TAB PV SCH (04:30)
[2018-06-09] MEDS ORDERED: TERBUTALINE INJ 1 MG/ML (BRETHINE) AMP SC PRN (05:15)
[2018-06-09] MEDS: CATHETER FLUSH 10 ML SYR IV SCH (06:09)
[2018-06-09] MEDS ORDERED: OXYTOCIN/NORMAL SALINE 500 ML IV ONE (07:53)
[2018-06-09] MEDS ORDERED: OXYTOCIN/NORMAL SALINE 500 ML IV SCH ×2 (08:01→17:53)
[2018-06-09] MEDS ORDERED: LIDOCAINE 1% INJ 20 ML 20 ML VIAL ONE (17:06)
--- NOTE | 2018-06-09 17:58 | OB Labor & Delivery Record ---
Vag Delivery Note Vag Delivery Note Date of Delivery: 06/09/18 Preoperative Diagnosis: Loretta Cabrera is a 32 /Para 09/29 , Gestational Age 39 weeks, anti FYa antibody, induction at [facility] recommendation Postoperative Diagnosis: Same Surgeon: ZAHIDA DE ANDA Anesthesia: epidural Delivery Type: vaginal Findings: Viable female , apgars 8/9, weight 8#11oz Lacerations: 2nd degree with vaginal/labial abrasions (these were not repaired) Intact placenta with 3 vessel cord. 1 nuchal cord and body cord delivered through. No shoulder dystocia Estimated Blood Loss: 200 ml Complications: None Condition: Stable Description of Procedure: The patient is a 32 /Para 4 /0030 ,Gestational Age 39 weeks, anti FYa antibody, induction at [facility] recommendation admitted and informed consent was obtained. Her labor course was remarkable for misoprostol x 2. She progressed to complete dilatation and began to push. She was then set up for delivery. The 's head was delivered atraumatically in the HOLLIE position. The shoulders and remainder of the 's body were then delivered without difficulty. Upon delivery, the head was held below the level of the perineum and the mouth and nares were bulb suctioned. The cord was doubly clamped and cut and the infant was handed off to the pediatric staff. An intact placenta with 3-vessel cord delivered via Dm and there was found to be minimal bleeding.~ Vigorous fundal massage was performed and the fundus was found to be firm. IV oxytocin was given. Examination of the vagina and perineum revealed a 2nd degree laceration repaired in the usual fashion with 3-0 vicryl suture. There were also vaginal/ labial abrasions that were not repaired. Following the repair, sponge, instrument and needle counts were correct. Mom and baby were both in stable condition in the labor suite. Vitals - Labs Vital Signs - I&O Vital Signs Date Time Temp Pulse Resp B/P (MAP) Pulse Ox O2 Delivery O2 Flow Rate FiO2 06/09/18 16:45 70 18 135/77 (96) 100 Non Rebreather 15.00 06/09/18 16:30 73 18 128/95 (106) 100 Non Rebreather 15.00 06/09/18 16:15 68 18 142/91 (108) 100 Non Rebreather 15.00 12/18/18 16:00 62 18 132/79 (96) 100 Non Rebreather 15.00 1818 15:45 71 18 133/71 (91) 100 Non Rebreather 15.00 1818 15:30 66 18 142/81 (101) 100 Room Air 1818 15:15 98.0 65 18 130/60 (83) 99 Room Air 18 15:00 61 18 124/62 (82) 100 Room Air 18 14:45 66 18 123/58 (79) 99 Room Air 18 14:30 63 18 122/64 (83) 99 Room Air 18 14:15 72 18 129/66 (87) 100 Room Air 06/09/18 14:00 67 18 119/58 (78) 99 Room Air 06/09/18 13:45 63 18 133/73 (93) 98 Room Air 06/09/18 13:30 65 18 113/57 (75) 98 Room Air 06/09/18 13:15 98.1 66 18 133/66 (88) 99 Room Air 06/09/18 13:00 80 18 134/73 (93) 99 Room Air 18 12:45 64 18 133/73 (93) 99 Room Air 18 12:30 67 18 132/60 (84) 100 Room Air 06/09/18 12:15 62 18 128/72 (90) 98 Room Air 06/09/18 12:00 69 18 128/59 (82) 99 Room Air 06/09/18 11:45 72 18 132/64 (86) 99 Room Air 06/09/18 11:30 61 18 121/59 (79) 98 Room Air 18 11:15 66 18 122/61 (81) 99 Room Air 18 11:00 63 18 125/63 (83) 99 Room Air 18 10:45 65 18 123/73 (90) 98 Room Air 06/09/18 10:30 65 18 130/75 (93) 99 Room Air 06/09/18 10:15 65 18 130/73 (92) 98 Room Air 06/09/18 10:00 97.7 83 18 156/85 (108) 98 Room Air 06/09/18 09:45 63 18 142/75 (97) 98 Room Air 06/09/18 09:30 68 18 139/78 (98) 99 Room Air 06/09/18 09:15 80 18 126/73 (90) 99 Room Air 06/09/18 09:00 79 18 124/70 (88) 97 Room Air 06/09/18 08:45 85 18 135/72 (93) 99 Room Air 06/09/18 08:30 79 18 133/67 (89) 98 Room Air 06/09/18 08:15 77 18 136/78 (97) 99 Room Air 18 08:00 66 18 140/82 (101) 100 Room Air 06/09/18 07:45 97.9 74 18 132/76 (94) 100 Room Air 06/09/18 07:30 67 18 132/63 (86) 98 Room Air 06/09/18 07:15 73 18 127/79 (95) 98 Room Air 06/09/18 07:00 77 18 133/67 (89) 97 Room Air 06/09/18 06:45 85 18 115/56 (75) 98 Room Air 18 06:30 91 18 98 Room Air 06/09/18 06:15 91 18 120/67 (84) 100 Non Rebreather 15.00 06/09/18 06:00 68 18 120/70 (87) 100 Non Rebreather 15.00 18 05:45 72 18 115/71 (86) 100 Non Rebreather 15.00 18 05:30 65 18 100 Non Rebreather 15.00 06/09/18 05:15 62 18 141/78 (99) 100 Non Rebreather 15.00 18 05:00 72 18 128/77 (94) 100 Non Rebreather 15.00 18 04:45 74 18 100 Non Rebreather 15.00 18 04:40 75 18 123/57 (79) 100 Room Air 15.00 1818 04:35 67 18 119/71 (87) 100 Room Air 15.00 1818 04:30 76 18 120/68 (85) 100 Non Rebreather 15.00 18 04:20 71 18 125/63 (83) 100 Room Air 18 04:17 73 18 127/64 (85) 98 Room Air 06/09/18 04:15 76 18 146/74 (98) 98 Room Air 06/09/18 04:10 79 18 145/98 (114) 99 Room Air 06/09/18 04:05 97.7 102 18 120/66 (84) 97 Room Air 06/09/18 04:00 74 18 144/70 (94) 98 Room Air 06/09/18 03:55 83 18 147/69 (95) 99 Room Air 06/09/18 03:52 83 18 142/62 (88) 99 Room Air 06/09/18 03:48 93 18 134/69 (90) 99 Room Air 06/09/18 03:45 102 18 124/59 (80) 100 Room Air 06/09/18 03:42 90 18 130/75 (93) 100 Room Air 06/09/18 03:40 82 18 141/81 (101) 100 Room Air 06/09/18 03:30 97.6 18 Room Air 06/09/18 03:00 18 Room Air 06/09/18 02:00 18 Room Air 06/09/18 01:00 18 Room Air 06/09/18 00:00 97.7 66 18 124/58 (80) Room Air 06/08/18 23:00 65 18 131/64 (86) 100 Room Air 06/08/18 22:00 18 Non Rebreather 06/08/18 21:58 72 18 131/84 (100) 100 Non Rebreather 06/08/18 21:40 74 18 131/70 (90) Room Air 06/08/18 21:00 98.2 85 18 123/98 (106) Room Air I & O 06/09/18 07:00 Intake Total 4400 ml Output Total 600 ml Balance 3800 ml Labs Laboratory Tests 06/08/18 20:00: Urine Color YELLOW, Urine Clarity CLEAR, Urine pH 6.5, Urine Specific [place] 1.015L, Urine Protein 1+H, Urine Glucose (UA) NEGATIVE, Urine Ketones NEGATIVE, Urine Nitrite NEGATIVE, Urine Bilirubin NEGATIVE, Urine Urobilinogen 1, Urine Leukocyte Esterase 1+H, Urine RBC (Auto) 3+H, Urine RBC 10-25H, Urine WBC 2-5, Urine Squamous Epithelial Cells 5-10, Urine Crystals NONE, Urine Bacteria FEWH, Urine Casts NONE, Urine Mucus LARGEH, Urine Culture Indicated NO 06/08/18 20:35: White Blood Count 9.6, Red Blood Count 3.68L, Hemoglobin 11.4L, Hematocrit 34L, Mean Corpuscular Volume 92, Mean Corpuscular Hemoglobin 31, Mean Corpuscular Hemoglobin Concent 34, Red Cell Distribution Width 15.3H, Platelet Count 299, Mean Platelet Volume 10.9H, Neutrophils (%) (Auto) 73, Lymphocytes (%) (Auto) 19 , Monocytes (%) (Auto) 8, Eosinophils (%) (Auto) 1, Basophils (%) (Auto) 0, Neutrophils # (Auto) 7.0, Lymphocytes # (Auto) 1.8, Monocytes # (Auto) 0.7, Eosinophils # (Auto) 0.1, Basophils # (Auto) 0.0 ZAHIDA DE ANDA DO Jun 09, 2018 17:58
[2018-06-09] MEDS ORDERED: HYDROcodone/APAP 5 MG/325 MG (LORTAB) TAB PO PRN (18:00)
[2018-06-09] MEDS ORDERED: DIBUCAINE (NUPERCAINAL) 1% OINT 30 GM TOP PRN (18:00)
[2018-06-09] MEDS ORDERED: WITCH HAZEL(TUCKS) 40 EA JAR TOP PRN (18:00)
[2018-06-09] MEDS ORDERED: TETANUS,DIPTH,PERTUSS P/F (BOOSTRIX) 0.5 ML VIAL IM ONE (18:00)
[2018-06-09] MEDS ORDERED: MEASLES,MUMPS,RUBELLA 1 EA INJ SQ ONE (18:00)
[2018-06-09] MEDS ORDERED: BENZOCAINE/MENTHOL (DERMOPLAST) 56 ML CAN TP PRN (18:00)
[2018-06-09] MEDS: IBUPROFEN 600 MG (MOTRIN) TAB PO SCH (18:50)
[2018-06-09] MEDS ORDERED: DOCUSATE SODIUM 100 MG (COLACE) CAP PO SCH (21:00)
[2018-06-09] MEDS ORDERED: CATHETER FLUSH 10 ML SYR IV SCH (22:00)
[2018-06-10 00:05] VITALS: BP 112/67
[2018-06-10] MEDS: IBUPROFEN 600 MG (MOTRIN) TAB PO SCH ×4 (00:05→17:40)
[2018-06-10 04:05] VITALS: BP 106/63
[2018-06-10 05:39] LABS: BASOPHILS % (AUTO) 0 % (0-10); EOSINOPHILS # (AUTO) 0.1 10^3/uL (0.0-0.3); EOSINOPHILS % (AUTO) 1 % (0-10); HEMATOCRIT 32 % (35-52); HEMOGLOBIN 10.7 G/DL (11.5-16.0); LYMPHOCYTES # (AUTO) 2.1 X 10^3 (1.0-4.0); LYMPHOCYTES % (AUTO) 15 % (12-44); MEAN CORPUSCULAR HEMOGLOBIN 31 PG (25-34); MEAN CORPUSCULAR HGB CONC 33 G/DL (32-36); MEAN CORPUSCULAR VOLUME 93 FL (80-99); MONOCYTES # (AUTO) 0.8 X 10^3 (0.0-1.0); MONOCYTES % (AUTO) 6 % (0-12); NEUTROPHILS # (AUTO) 11.5 X 10^3 (1.8-7.8); NEUTROPHILS % (AUTO) 79 % (42-75); PLATELET COUNT 233 10^3/uL (130-400); RED BLOOD COUNT 3.46 10^6/uL (4.35-5.85); RED CELL DISTRIBUTION WIDTH 15.2 % (10.0-14.5); WHITE BLOOD COUNT 14.6 10^3/uL (4.3-11.0)
[2018-06-10] MEDS ORDERED: PRENATAL VITAMIN 1 EA TAB PO SCH (07:00)
[2018-06-10 08:25] VITALS: BP 101/58
[2018-06-10] MEDS ORDERED: FERROUS SULF 325 MG (IRON) TAB PO SCH (09:00)
[2018-06-10 11:55] VITALS: BP 134/73
--- NOTE | 2018-06-10 15:12 | Anesthesia-Regional Post-Op ---
Regional Patient Condition Mental Status: Alert, Oriented x3 Circulation: Same as Pre-Op Headache: Absent Sensation: Full Recovery Motor Block: Absent Post Op Complications Complications None Follow Up Care/Instructions Patient Instructions None needed. Anesthesia/Patient Condition Patient is doing well, no complaints, stable vital signs, no apparent adverse anesthesia problems. No complications reported per nursing. TUAN SALAS CRNA Jun 10, 2018 15:12
[2018-06-10 16:36] VITALS: BP 128/71
[2018-06-10 20:00] VITALS: BP 142/86
--- NOTE | 2018-06-12 11:34 | Physician Query-Final Dx ---
SHY ELENA 06/12/18 1134: Final Diagnosis Give Final Diagnosis Please give Final Diagnosis ZAHIDA DE ANDA DO 06/13/18 1229: Final Diagnosis Give Final Diagnosis isoimmunization , other (anti-FYa) 39 week induction epidural vaginal delivery SHY ELENA Jun 12, 2018 11:34 ZAHIDA DE ANDA DO Jun 13, 2018 12:29
== END 2018-06-10 20:12 | disposition home or self-care (01) | DRG 807 ==
LOC: LDRP 19:58
PROVIDERS: ADMIT Obstetrics & Gynecology; ATTEND Obstetrics & Gynecology
PROC: 10E0XZZ Delivery of Products of Conception, External Approach (ICD-10-PCS; principal; 2018-06-09)
PROC: 0KQM0ZZ Repair Perineum Muscle, Open Approach (ICD-10-PCS; 2018-06-09)
PROC: 3E0DXGC Introduction of Other Therapeutic Substance into Mouth and Pharynx, External Approach (ICD-10-PCS; 2018-06-09)
PROC: 3E0P7GC Introduction of Other Therapeutic Substance into Female Reproductive, Via Natural or Artificial Opening (ICD-10-PCS; 2018-06-09)
DX: O36.1930 Maternal care for other isoimmunization, third trimester, not applicable or unspecified (principal); O70.1 Second degree perineal laceration during delivery; O69.81X0 Labor and delivery complicated by cord around neck, without compression, not applicable or unspecified; O69.82X0 Labor and delivery complicated by other cord entanglement, without compression, not applicable or unspecified; O99.62 Diseases of the digestive system complicating childbirth; K21.9 Gastro-esophageal reflux disease without esophagitis; Z3A.39 39 weeks gestation of pregnancy; Z37.0 Single live birth
CPT/HCPCS: 36415; 81000; 85025; 86850; 86870; 86900; 86901

== ENCOUNTER 2020-06-20 21:17 | Emergency (ER) | payer MEDICAID ==
[~2020-06-20] VITALS: Ht 170 cm; Wt 105.0 kg
[~2020-06-20 21:17] MED LIST changes: +OMEP40CA27 PO; -OMEP40CA36 PO
[2020-06-20 21:31] VITALS: BP 134/83
[2020-06-20 21:50] LABS: BILIRUBIN,URINE NEGATIVE (NEGATIVE); CLARITY,URINE CLEAR; COLOR,URINE YELLOW; GLUCOSE, URINE (UA) NEGATIVE (NEGATIVE); KETONES,URINE NEGATIVE (NEGATIVE); LEUKOCYTE ESTERASE ,URINE NEGATIVE (NEGATIVE); NITRITE,URINE NEGATIVE (NEGATIVE); PROTEIN,URINE NEGATIVE (NEGATIVE)
[2020-06-20 21:56] LABS: BACTERIA,URINE TRACE /HPF; WBC,URINE 0-2 /HPF
--- NOTE | 2020-06-20 21:59 | ED Back Pain ---
General Chief Complaint: Back Problems Stated Complaint: LOWER BACK PAIN Nursing Triage Note: reports woke up with dull lower back pain, worse on left. denies injury. reports being 17 weeks . Nursing Sepsis Screen: No Definite Risk Source of Information: Patient History of Present Illness Date Seen by Provider: Jun 20, 2020 Time Seen by Provider: 21:43 Initial Comments PT ARRIVES VIA POV FROM HOME C/O PAIN TO LEFT LOWER BACK SINCE WAKING TODAY AT 0930--WAS FINE WHEN SHE WENT TO BED LAST NIGHT PAIN HAS GRADUALLY GOTTEN WORSE--NOTICED IT MORE AFTER SHE GOT HOME FROM THE [facility] PAIN IS WORSE IF SHE "SLOUCHES", AND IS BETTER IF SHE SITS UP STRAIGHT HAS NOT TAKEN ANYTHING FOR PAIN AT ANY TIME NO INJURY OR HEAVY LIFTING, ETC. OR UNUSUAL ACTIVITY. PT WORKS AT [employer] IN [place], BUT DOES NOT DO ANY HEAVY LIFTING NO RADIATION OF PAIN NO PARESTHESIAS OR MOTOR DEFICITS NO PROBLEMS WITH BOWEL OR BLADDER FUNCTION OR ANY URINARY SYMPTOMS NO FEVER NO GI SYMPTOMS OR ABDOMINAL PAIN PT IS 17 WEEKS . LMP 02/23/20. PT IS AB3 NO VAGINAL BLEEDING, NO DISCHARGE, NO CRAMPING/PAIN SEES DR. DE ANDA LOCALLY AND PERINATOLOGIST DR. BRYANT IN [place]. PT HAS ANTI-FYA ANTIBODIES HAD OUTPATIENT ULTRASOUND AND TELEVISIT YESTERDAY AT [place] WITH DR. BRYANT. PT STATES ULTRASOUND WAS LIMITED STUDY-"DID NOT GET A GOOD LOOK AT THE BABY" , AND IS RE-SCHEDULED NEXT WEEK FOR ANOTHER ONE Other Comments PCP: [facility] Allergies and Home Medications Allergies Coded Allergies: No Known Drug Allergies (Verified , 04/29/18) Home Medications Prednisone 20 Mg Tab, 40 MG PO DAILY Prescribed by: KATY MARQUIS on 06/20/205 Vit No.124/Iron/FA 1 Each Tablet, 1 EACH PO DAILY, (Reported) Patient Home Medication List Home Medication List Reviewed: Yes Review of Systems Constitutional: no symptoms reported Respiratory: no symptoms reported Cardiovascular: no symptoms reported Gastrointestinal: no symptoms reported Genitourinary: no symptoms reported : Yes LMP: Feb 23, 2020 Musculoskeletal: see HPI, back pain Skin: no symptoms reported Psychiatric/Neurological: No Symptoms Reported Past Dajajdw-Tihccv-Rbdngc Hx Past Med/Social Hx: Reviewed and Corrections made Patient Social History Alcohol Use: Denies Use Recreational Drug Use: No Smoking Status: Never a Smoker 2nd Hand Smoke Exposure: No Recent Foreign Travel: No Contact w/Someone Who Travel: No Recent Infectious Disease Expo: No Recent Hopitalizations: No Immunizations Up To Date Tetanus Booster (TDap): Unknown Date of Influenza Vaccine: Mar 23, 2018 Seasonal Allergies Seasonal Allergies: No Past Medical History Surgeries: Yes Gallbladder Respiratory: No Cardiac: No Neurological: No : Yes Expected Date of Delivery: Nov 30, 2019 Last Menstrual Period: Feb 23, 2020 Hx : 5 Hx Para: 1 Hx Total # of Abortions (Sp): 3 Reproductive Disorders: Yes (ANTI-FYA ANTIBODIES) Female Reproductive Disorders: Denies Genitourinary: No Gastrointestinal: Yes Gastroesophageal Reflux, Gall Bladder Disease Musculoskeletal: No Endocrine: No HEENT: No Cancer: No Psychosocial: No Integumentary: No Blood Disorders: Yes (anemia, anti-fya ANTIBODIES) Adverse Reaction/Blood Tranf: No (hx of transfusion in 2008) Family Medical History No Pertinent Family Hx Physical Exam Vital Signs Vital Signs - First Documented 06/20/20 21:31 Temp 37.1 Pulse 82 Resp 18 B/P (MAP) 134/83 (100) Pulse Ox 99 O2 Delivery Room Air Capillary Refill : Less Than 3 Seconds Height, Weight, BMI Height: 5'7.00" Weight: 273lbs. 8.0oz. 124.282558io; 36.00 BMI Method:Stated General Appearance: No Apparent Distress, WD/WN, Other (PT WALKS AND MOVES WITHOUT DIFFICULTY) Neck: Normal Inspection Cardiovascular: Regular Rate, Rhythm, No Edema, No JVD, No Murmur, Normal Peripheral Pulses Respiratory: Normal Breath Sounds, No Accessory Muscle Use, No Respiratory Distress Gastrointestinal: Non Tender, Soft, Other (FUNDUS 2 FB'S BELOW UMBILICUS. ) Back: No CVA Tenderness, Other (MARKED TENDERNESS OVER LEFT SI JOINT--PALPATION REPRODUCES PAIN ) Extremity: Normal Inspection Neurologic/Psychiatric: Alert, Oriented x3, No Motor/Sensory Deficits, Normal Mood/Affect, recreation therapy aide II-XII Norm as Tested, Other (DTR'S INTACT) Skin: Normal Color, Warm/Dry; No Rash Progress/Results/Core Measures Results/Orders Lab Results Laboratory Tests Test 06/20/20 21:35 Range/Units Urine Color YELLOW Urine Clarity CLEAR Urine pH 6.0 5-9 Urine Specific [place] 1.025 H 1.016-1.022 Urine Protein NEGATIVE NEGATIVE Urine Glucose (UA) NEGATIVE NEGATIVE Urine Ketones NEGATIVE NEGATIVE Urine Nitrite NEGATIVE NEGATIVE Urine Bilirubin NEGATIVE NEGATIVE Urine Urobilinogen 0.2 < = 1.0 MG/DL Urine Leukocyte Esterase NEGATIVE NEGATIVE Urine RBC (Auto) TRACE-I NEGATIVE Urine RBC 2-5 H /HPF Urine WBC 0-2 /HPF Urine Squamous Epithelial Cells 5-10 /HPF Urine Crystals NONE /LPF Urine Bacteria TRACE /HPF Urine Casts NONE /LPF Urine Mucus SMALL H /LPF Urine Culture Indicated NO My Orders Orders - KATY MARQUIS DO Ua Culture If Indicated (06/20/20 21:43) Heart Tones (06/20/20 21:45) Vital Signs/I&O 06/20/20 21:31 Temp 37.1 Pulse 82 Resp 18 B/P (MAP) 134/83 (100) Pulse Ox 99 O2 Delivery Room Air Blood Pressure Mean: 100 Progress Progress Note : Progress Note FHT'S 150 Departure Impression Primary Impression: Pain of left sacroiliac joint Additional Impression: 17 weeks gestation of Disposition: 01 HOME, SELF-CARE Condition: Stable Departure-Patient Inst. Referrals: ZAHIDA DE ANDA DO (PCP/Family) Primary Care Physician Patient Instructions: Sacroiliac Joint Pain, How to Adapt to Physical Changes During Add. Discharge Instructions: TYLENOL 1 GRAM EVERY 6 HOURS/4 TIMES A DAY NEEDED FOR PAIN MOIST HEAT TO AREA AT 20 MINUTE INTERVALS NO LIFTING OVER 5 LBS, NO TWISTING OR BENDING AT WAIST. FOLLOW UP WITH YOUR DR IN 3-4 DAYS IF NO BETTER All discharge instructions reviewed with patient and/or family. Voiced understanding. Scripts Prednisone (Prednisone) 20 Mg Tab 40 MG PO DAILY, #6 TAB 0 Refills Prov: KATY MARQUIS DO 06/20/20 KATY MARQUIS DO Jun 20, 2020 21:59
[2020-06-20] MEDS ORDERED: PRD20T PO (22:05)
== END 2020-06-20 22:08 | disposition home or self-care (01) ==
LOC: EDUNIT# 21:17 → ER 21:19
DX: O26.892 Other specified pregnancy related conditions, second trimester (principal); M53.3 Sacrococcygeal disorders, not elsewhere classified; Z3A.17 17 weeks gestation of pregnancy; Z79.52 Long term (current) use of systemic steroids
CPT/HCPCS: 81000

== ENCOUNTER 2020-08-28 08:55 | Outpatient (CLI) | payer MEDICAID ==
[~2020-08-28] VITALS: Ht 170.2 cm; Wt 110.2 kg
[~2020-08-28 08:55] MED LIST changes: +PRD20T PO
[2020-08-28 09:13] VITALS: BP 119/68
[2020-08-28 09:31] LABS: BILIRUBIN,URINE NEGATIVE (NEGATIVE); CLARITY,URINE CLEAR; COLOR,URINE YELLOW; GLUCOSE, URINE (UA) NEGATIVE (NEGATIVE); KETONES,URINE NEGATIVE (NEGATIVE); LEUKOCYTE ESTERASE ,URINE NEGATIVE (NEGATIVE); NITRITE,URINE NEGATIVE (NEGATIVE); PH,URINE 7.5 (5-9); PROTEIN,URINE NEGATIVE (NEGATIVE)
[2020-08-28 09:46] LABS: BACTERIA,URINE NEGATIVE /HPF
[2020-08-28] MEDS ORDERED: ASPI-999 PO (10:04)
--- NOTE | 2020-08-29 07:53 | Physician Query-Final Dx ---
ALESIA GUAMAN 08/29/20 0753: Clinic Account Progress/Dx Physician Query: Please give diagnosis Please include # weeks gestation Date of Service Aug 28, 2020 at 08:55 [place] DO 08/29/20 0808: Clinic Account Progress/Dx DIAGNOSIS: Diagnosis 26 week IUP Abdominal pain Constipation ALESIA GUAMAN Aug 29, 2020 07:53 [place] DO Aug 29, 2020 08:08
== END 2020-08-28 10:18 | disposition home or self-care (01) ==
LOC: WSo 08:55 → LDRP 08:57 → WSo 10:18
PROVIDERS: ATTEND Obstetrics & Gynecology
DX: O99.612 Diseases of the digestive system complicating pregnancy, second trimester (principal); Z3A.26 26 weeks gestation of pregnancy
CPT/HCPCS: 81000

== ENCOUNTER → 2020-09-07 | Outpatient (CLI) | payer MEDICAID ==
[~2020-09-07] MED LIST changes: +ASPI-999 PO
--- NOTE | 2020-09-07 18:15 | Diagnostic Imaging Report ---
INDICATION: Follow-up of incompletely assessed anatomy at prior imaging. TECHNIQUE: Multiple, limited real-time grayscale images were obtained over the gravid uterus. COMPARISON: None FINDINGS: A single live intrauterine is currently in a transverse orientation with the head to maternal right. The placenta anterior without evidence for previa. Normal amount of amniotic fluid appears to be present. There is suboptimal evaluation of the maxillofacial structures owing to current positioning. Biometrical measurements were not performed. heart rate: 149 beats per minute. IMPRESSION: 1. Single viable intrauterine currently in transverse orientation. 2. The maxillofacial structures were unable to be adequately assessed at this time given positioning. Dictated by: Dictated on workstation # [id number]
== END ==
LOC: RAD 15:15
PROVIDERS: ATTEND Obstetrics & Gynecology
DX: Z36.2 Encounter for other antenatal screening follow-up (principal)
CPT/HCPCS: 76816

== ENCOUNTER → 2020-09-29 | Outpatient (CLI) | payer MEDICAID ==
--- NOTE | 2020-09-29 15:48 | Diagnostic Imaging Report ---
INDICATION: Abnormal presentation. TECHNIQUE: Multiple real-time grayscale images were obtained over the gravid uterus. COMPARISON: 09/07/2020 FINDINGS: The previous OB ultrasound exam performed on 09/07/2020 noted a single live fetus of approximately 28 weeks 3 days gestation +/- 2 weeks. There are no abnormalities identified but the maxillofacial structures were not well-visualized. The study of the fetus is again identified. The fetus is in transverse presentation with the head on maternal right. heart motion was noted and a rate of 138 BPM was recorded. There were no abnormalities identified. The growth parameters average approximately 33 weeks 4 days +/- 3 weeks. By the 1st exam the estimated gestational age should be approximately 31 weeks. The estimated weight according the LMP is in the 88th percentile. The placenta is anterior and there is no previa. The amniotic fluid volume is within normal limits. IMPRESSION: 1. There is a single live fetus approximately 31 weeks gestation +/- 2 weeks. The EDC remains 11/27/2020. 2. The fetus is in transverse presentation with the head on maternal right. 3. There were no abnormalities identified. 4. The growth parameters suggest that the fetus is at the upper limits of normal in size. If further study is desired, then a short-term (2-4 week) follow-up ultrasound exam should be obtained. 5. Also, if more distant prior ultrasound exams are available they would be helpful to establish the most accurate EDC. Biometrical measurements are as follows: Biparietal 8.03 cm, age 32 weeks 2 days. Head circumference 31.97 cm, age 36 weeks 1 days. Abdominal circumference 28.64 cm, age 32 weeks 5 days. Femur length 6.30 cm, age 32 weeks 5 days. Sonographic estimate age: 33 weeks 4 days. Sonographic estimated date of delivery: 11/13/2020. Estimated Weight: 2082 gm (+/- 304 gm). LMP percentile: 88%. heart rate: 138 beats per minute. number: 1 of 1. Dictated by: Dictated on workstation # [id number]
== END ==
LOC: RAD 13:00
PROVIDERS: ATTEND Obstetrics & Gynecology
DX: O32.9XX9 Maternal care for malpresentation of fetus, unspecified, other fetus (principal); Z3A.31 31 weeks gestation of pregnancy
CPT/HCPCS: 76805

== ENCOUNTER → 2020-11-09 | Outpatient (CLI) | payer MEDICAID ==
--- NOTE | 2020-11-09 18:05 | Diagnostic Imaging Report ---
INDICATION: Large for gestational age. FINDINGS: There is a single living intrauterine in cephalic presentation. Amniotic fluid index is 15.5. Placenta is anterior. There is no previa. Heart rate is 128 bpm. There is normal breathing. IMPRESSION: Single living intrauterine with sonographically estimated gestational age of 37 weeks 2 days and estimated date of confinement 11/28/2020. Dictated by: Dictated on workstation # [id number]
== END ==
LOC: RAD 15:15
PROVIDERS: ATTEND Obstetrics & Gynecology
DX: O35.8XX9 Maternal care for other (suspected) fetal abnormality and damage, other fetus (principal); Z3A.37 37 weeks gestation of pregnancy
CPT/HCPCS: 76816

== ENCOUNTER → 2020-11-09 | Outpatient (CLI) | payer MEDICAID ==
--- NOTE | 2020-11-09 15:57 | Diagnostic Imaging Report ---
PROCEDURE: US Renal Bilateral. TECHNIQUE: Multiple real-time grayscale images were obtained over the kidneys in various projections bilaterally. INDICATION: Patient 37 weeks with renal colic. FINDINGS: Right kidney measures 11.0 x 5.0 x 5.3 cm and left kidney measures 11.7 x 5.8 x 6.3 cm. Cortical thickness and echogenicity is normal. No calculi or hydronephrosis is detected. Bladder is unremarkable. IMPRESSION: Unremarkable renal ultrasound. Dictated by: Dictated on workstation # [id number]
== END ==
LOC: RAD 11:58
PROVIDERS: ATTEND Obstetrics & Gynecology
DX: O26.833 Pregnancy related renal disease, third trimester (principal); N23 Unspecified renal colic; Z3A.37 37 weeks gestation of pregnancy
CPT/HCPCS: 76770

== ENCOUNTER 2020-11-21 20:00 | Inpatient (IN) | payer MEDICAID ==
[~2020-11-21] VITALS: Ht 170.2 cm; Wt 114.7 kg
[2020-11-21] MEDS ORDERED: NS IV 1000 ML 1,000 ML ONE (20:47)
[2020-11-21 20:51] VITALS: BP 136/78
[2020-11-21 21:26] LABS: BILIRUBIN,URINE NEGATIVE (NEGATIVE); CLARITY,URINE CLEAR; COLOR,URINE DARK YELLOW; GLUCOSE, URINE (UA) NEGATIVE (NEGATIVE); KETONES,URINE NEGATIVE (NEGATIVE); LEUKOCYTE ESTERASE ,URINE NEGATIVE (NEGATIVE); NITRITE,URINE NEGATIVE (NEGATIVE); PH,URINE 6.5 (5-9); PROTEIN,URINE NEGATIVE (NEGATIVE)
[2020-11-21] MEDS ORDERED: MINERAL OIL CONCENTRATE 99.9% 15 ML UDC TOP PRN (21:30)
[2020-11-21 21:32] LABS: RBC,URINE RARE /HPF; WBC,URINE RARE /HPF
[2020-11-21 21:33] LABS: BACTERIA,URINE TRACE /HPF; CALCIUM OXALATE CRYSTALS,UR FEW /LPF
[2020-11-21 21:45] LABS: BASOPHILS % (AUTO) 0 % (0-10); EOSINOPHILS # (AUTO) 0.1 10^3/uL (0.0-0.3); EOSINOPHILS % (AUTO) 1 % (0-10); HEMATOCRIT 34 % (35-52); HEMOGLOBIN 11.7 g/dL (11.5-16.0); LYMPHOCYTES # (AUTO) 2.1 10^3/uL (1.0-4.0); LYMPHOCYTES % (AUTO) 20 % (12-44); MEAN CORPUSCULAR HEMOGLOBIN 31 pg (25-34); MEAN CORPUSCULAR HGB CONC 34 g/dL (32-36); MEAN CORPUSCULAR VOLUME 91 fL (80-99); MEAN PLATELET VOLUME 10.1 fL (9.0-12.2); MONOCYTES # (AUTO) 0.8 10^3/uL (0.0-1.0); MONOCYTES % (AUTO) 8 % (0-12); NEUTROPHILS # (AUTO) 7.5 10^3/uL (1.8-7.8); NEUTROPHILS % (AUTO) 71 % (42-75); PLATELET COUNT 304 10^3/uL (130-400); WHITE BLOOD COUNT 10.6 10^3/uL (4.3-11.0)
[2020-11-21] MEDS ORDERED: NS IV 1000 ML 1,000 ML IV ONE (21:45)
[2020-11-21] MEDS ORDERED: TERBUTALINE INJ 1 MG/ML (BRETHINE) AMP SC PRN (21:45)
[2020-11-21 22:00] VITALS: BP 128/75
[2020-11-21] MEDS ORDERED: CATHETER FLUSH 10 ML SYR IV SCH (22:00)
[2020-11-21] MEDS ORDERED: ZOLPIDEM 5 MG (AMBIEN) TAB PO ONE (22:00)
[2020-11-21] MEDS: D5 LR IV SOLUTION 1,000 ML IV SCH (22:37)
[2020-11-21 23:00] VITALS: BP 144/89
[2020-11-22] VITALS (39 sets, daily range): BP systolic 108–171; BP diastolic 56–98
[2020-11-22] MEDS ORDERED: BUTORPHANOL INJ 2 MG/ML (STADOL) VIAL ONE (06:09)
[2020-11-22] MEDS ORDERED: BUTORPHANOL INJ 2 MG/ML (STADOL) VIAL IV ONE (06:15)
[2020-11-22] MEDS: D5 LR IV SOLUTION 1,000 ML IV SCH (06:33)
--- NOTE | 2020-11-22 09:05 | History & Physical-OB ---
OB - Chief Complaint & HPI Date/Time Date of Admission: Date of Admission: Nov 21, 2020 at 20:35 Chief Complaint/History Expected Date of Delivery: Nov 29, 2020 Gestational Age in Weeks: 38 Gestational Age in Days: 6 Allergies and Home Medications Allergies Coded Allergies: No Known Drug Allergies (Verified , 04/29/18) Home Medications Vit No.124/Iron/FA 1 Each Tablet, 1 EACH PO DAILY, (Reported) Last Action: Reviewed OB - History Delivery History Hx Blood Disorders: No (anemia) Adverse Rxn to Tranfusion: No (hx of transfusion in 2008) Social History/Family History 2nd Hand Smoke Exposure: No Immunizations Tetanus Booster (TDap): Unknown Date of Influenza Vaccine: Apr 14, 2020 OB - Admission Exam Physical Exam Vitals: Vital Signs 11/21/20 11/22/20 11/22/20 20:51 06:00 07:00 Temp 36.7 Pulse 56 Resp 18 B/P (MAP) 131/63 (85) Pulse Ox 97 O2 Delivery Room Air Labs Laboratory Tests Test 11/21/20 20:50 11/21/20 21:32 Range/Units Urine Color DARK YELLOW Urine Clarity CLEAR Urine pH 6.5 5-9 Urine Specific [place] 1.025 H 1.016-1.022 Urine Protein NEGATIVE NEGATIVE Urine Glucose (UA) NEGATIVE NEGATIVE Urine Ketones NEGATIVE NEGATIVE Urine Nitrite NEGATIVE NEGATIVE Urine Bilirubin NEGATIVE NEGATIVE Urine Urobilinogen 1.0 < = 1.0 MG/DL Urine Leukocyte Esterase NEGATIVE NEGATIVE Urine RBC (Auto) TRACE-I NEGATIVE Urine RBC RARE /HPF Urine WBC RARE /HPF Urine Squamous Epithelial Cells 2-5 /HPF Urine Crystals PRESENT H /LPF Urine Calcium Oxalate Crystals FEW H /LPF Urine Bacteria TRACE /HPF Urine Casts NONE /LPF Urine Mucus MODERATE H /LPF Urine Culture Indicated NO White Blood Count 10.6 4.3-11.0 10^3/uL Red Blood Count 3.77 L 3.80-5.11 10^6/uL Hemoglobin 11.7 11.5-16.0 g/dL Hematocrit 34 L 35-52 % Mean Corpuscular Volume 91 80-99 fL Mean Corpuscular Hemoglobin 31 25-34 pg Mean Corpuscular Hemoglobin Concent 34 32-36 g/dL Red Cell Distribution Width 13.9 10.0-14.5 % Platelet Count 304 130-400 10^3/uL Mean Platelet Volume 10.1 9.0-12.2 fL Immature Granulocyte % (Auto) 1 % Neutrophils (%) (Auto) 71 42-75 % Lymphocytes (%) (Auto) 20 12-44 % Monocytes (%) (Auto) 8 0-12 % Eosinophils (%) (Auto) 1 0-10 % Basophils (%) (Auto) 0 0-10 % Neutrophils # (Auto) 7.5 1.8-7.8 10^3/uL Lymphocytes # (Auto) 2.1 1.0-4.0 10^3/uL Monocytes # (Auto) 0.8 0.0-1.0 10^3/uL Eosinophils # (Auto) 0.1 0.0-0.3 10^3/uL Basophils # (Auto) 0.0 0.0-0.1 10^3/uL Immature Granulocyte # (Auto) 0.1 0.0-0.1 10^3/uL ZAHIDA DE ANDA DO Nov 22, 2020 09:05
[2020-11-22] MEDS ORDERED: OXYTOCIN PRE-MIX DRIP 500 ML IV SCH (09:15)
[2020-11-22] MEDS ORDERED: fentaNYL 2 mcg/ml BUPIVA 0.125 100 ML ONE (09:35)
[2020-11-22] MEDS ORDERED: BUPIVACAINE 0.25% 30 ML (SENSORCAINE) VIAL ONE (10:41)
[2020-11-22] MEDS ORDERED: fentaNYL INJ 100 MCG/2 ML AMP ONE (10:41)
[2020-11-22] MEDS ORDERED: LACTATED RINGERS 1,000 ML IV ONE (11:00)
[2020-11-22] MEDS ORDERED: NALOXONE 0.4 MG/ML 1 ML (NARCAN) VIAL IV PRN (11:00)
[2020-11-22] MEDS ORDERED: fentaNYL 2 mcg/ml BUPIVA 0.125 100 ML IV SCH (11:00)
[2020-11-22] MEDS ORDERED: ONDANSETRON 4 MG/2 ML (SDV) Z0FRAN IV PRN (11:00)
[2020-11-22] MEDS ORDERED: diphenhydrAMINE 50 MG/ML INJ (BENADRYL) IV PRN (11:00)
[2020-11-22] MEDS ORDERED: CATHETER FLUSH 10 ML SYR IV PRN (11:00)
--- NOTE | 2020-11-22 12:27 | OB Labor & Delivery Record ---
Vag Delivery Note Vag Delivery Note Date of Delivery: 11/22/20 Preoperative Diagnosis: Loretta Cabrera is a (35 /Para 4 /1 ,Gestational Age 39 weeks, abnormal antibody (anti-FYa Postoperative Diagnosis: Same Surgeon: ZAHIDA DE ANDA Anesthesia: epidural Delivery Type: [] Findings: Viable female , apgars [], weight [] Lacerations: superficial perineal, bleeding Intact placenta with 3 vessel cord. Nuchal cord, body cord delivered through. No shoulder dystocia Estimated Blood Loss: 150 ml Complications: None Condition: Stable Description of Procedure: The patient is a 35 year old female who presented []. She was admitted and informed consent was obtained. Her labor course was remarkable for [] She progressed to complete dilatation and began to push. She was then set up for delivery. The 's head was delivered atraumatically in the [] position. The shoulders and remainder of the 's body were then delivered without difficulty. Upon delivery, the head was held below the level of the perineum and the mouth and nares were bulb suctioned. The cord was doubly clamped and cut and the was handed off to the pediatric staff. An intact placenta with 3-vessel cord delivered via Dm and there was found to be minimal bleeding.~ Vigorous fundal massage was performed and the fundus was found to be firm. IV oxytocin was given. Examination of the vagina and perineum revealed a [] laceration repaired in the usual fashion with 3-0 vicryl suture. Following the repair, sponge, instrument and needle counts were correct. Mom and baby were both in stable condition in the labor suite. Vitals - Labs Vital Signs - I&O Vital Signs Date Time Temp Pulse Resp B/P (MAP) Pulse Ox O2 Delivery O2 Flow Rate FiO2 11/22/20 10:05 57 18 155/98 (117) Room Air 11/22/20 09:50 59 18 136/98 (111) 98 Room Air 11/22/20 09:00 59 18 143/82 (102) 98 Room Air 11/22/20 08:05 35.6 59 18 131/72 (91) Room Air 11/22/20 07:00 56 18 131/63 (85) Room Air 11/22/20 06:00 36.7 70 18 144/68 (93) Room Air 11/22/20 05:00 11/22/20 04:00 58 18 153/74 (100) Room Air 11/22/20 03:00 36.2 81 18 149/83 (105) Room Air 11/22/20 02:00 36.2 72 18 126/73 (90) Room Air 11/22/20 01:00 66 18 142/73 (96) Room Air 11/22/20 00:00 36.2 65 18 139/81 (100) Room Air 11/21/20 23:00 67 18 144/89 (107) Room Air 11/21/20 22:00 65 18 128/75 (92) Room Air 11/21/20 20:51 36.5 76 18 97 Room Air I & O 11/22/20 07:00 Intake Total 1000 ml Balance 1000 ml Labs Laboratory Tests 11/21/20 20:50: Urine Color DARK YELLOW, Urine Clarity CLEAR, Urine pH 6.5, Urine Specific [place] 1.025H, Urine Protein NEGATIVE, Urine Glucose (UA) NEGATIVE, Urine Ketones NEGATIVE, Urine Nitrite NEGATIVE, Urine Bilirubin NEGATIVE, Urine Urobilinogen 1.0, Urine Leukocyte Esterase NEGATIVE, Urine RBC (Auto) TRACE-I, Urine RBC RARE, Urine WBC RARE, Urine Squamous Epithelial Cells 2-5, Urine Crystals PRESENTH, Urine Calcium Oxalate Crystals FEWH, Urine Bacteria TRACE, Urine Casts NONE, Urine Mucus MODERATEH, Urine Culture Indicated NO 11/21/20 21:32: White Blood Count 10.6, Red Blood Count 3.77L, Hemoglobin 11.7, Hematocrit 34L, Mean Corpuscular Volume 91, Mean Corpuscular Hemoglobin 31, Mean Corpuscular Hemoglobin Concent 34, Red Cell Distribution Width 13.9, Platelet Count 304, Mean Platelet Volume 10.1, Immature Granulocyte % (Auto) 1, Neutrophils (%) (Auto) 71, Lymphocytes (%) (Auto) 20, Monocytes (%) (Auto) 8, Eosinophils (%) (Auto) 1, Basophils (%) (Auto) 0, Neutrophils # (Auto) 7.5, Lymphocytes # (Auto) 2.1, Monocytes # (Auto) 0.8, Eosinophils # (Auto) 0.1, Basophils # (Auto) 0.0, Immature Granulocyte # (Auto) 0.1 ZAHIDA DE ANDA DO Nov 22, 2020 12:27
[2020-11-22] MEDS ORDERED: WITCH HAZEL(TUCKS) 40 EA JAR TOP PRN (12:30)
[2020-11-22] MEDS ORDERED: BENZOCAINE/MENTHOL (DERMOPLAST) 56 ML CAN TP PRN (12:30)
[2020-11-22] MEDS ORDERED: MEASLES,MUMPS,RUBELLA 1 EA INJ SQ ONE (12:30)
[2020-11-22] MEDS ORDERED: TETANUS,DIPTH,PERTUSS P/F (BOOSTRIX) 0.5 ML VIAL IM ONE (12:30)
[2020-11-22] MEDS: ACETAMINOPHEN 500 MG TAB (TYLENOL) PO SCH ×2 (12:55→21:28)
[2020-11-22] MEDS: OXYTOCIN PRE-MIX DRIP 500 ML IV SCH (12:55)
[2020-11-22] MEDS ORDERED: CATHETER FLUSH 10 ML SYR IV SCH (14:00)
[2020-11-22] MEDS: IBUPROFEN 600 MG (MOTRIN) TAB PO SCH (16:10)
[2020-11-22] MEDS ORDERED: IBUPROFEN 600 MG (MOTRIN) TAB PO SCH (18:00)
[2020-11-22] MEDS: DOCUSATE SODIUM 100 MG (COLACE) CAP PO SCH (21:29)
[2020-11-23] MEDS: IBUPROFEN 600 MG (MOTRIN) TAB PO SCH ×3 (00:23→12:26)
[2020-11-23 03:08] VITALS: BP 130/67
[2020-11-23 06:01] LABS: BASOPHILS # (AUTO) 0.1 10^3/uL (0.0-0.1); BASOPHILS % (AUTO) 1 % (0-10); EOSINOPHILS # (AUTO) 0.1 10^3/uL (0.0-0.3); EOSINOPHILS % (AUTO) 1 % (0-10); HEMATOCRIT 30 % (35-52); HEMOGLOBIN 10.1 g/dL (11.5-16.0); LYMPHOCYTES # (AUTO) 2.7 10^3/uL (1.0-4.0); LYMPHOCYTES % (AUTO) 25 % (12-44); MEAN CORPUSCULAR HEMOGLOBIN 32 pg (25-34); MEAN CORPUSCULAR HGB CONC 34 g/dL (32-36); MEAN CORPUSCULAR VOLUME 93 fL (80-99); MEAN PLATELET VOLUME 10.2 fL (9.0-12.2); MONOCYTES # (AUTO) 0.6 10^3/uL (0.0-1.0); MONOCYTES % (AUTO) 6 % (0-12); NEUTROPHILS # (AUTO) 7.3 10^3/uL (1.8-7.8); NEUTROPHILS % (AUTO) 68 % (42-75); PLATELET COUNT 234 10^3/uL (130-400); WHITE BLOOD COUNT 10.9 10^3/uL (4.3-11.0)
[2020-11-23 06:16] VITALS: BP 112/61
[2020-11-23 06:20] VITALS: BP 125/70
[2020-11-23] MEDS: ACETAMINOPHEN 500 MG TAB (TYLENOL) PO SCH (06:20)
[2020-11-23] MEDS: OXYTOCIN PRE-MIX DRIP 500 ML IV SCH (07:26)
--- NOTE | 2020-11-23 08:44 | Postpartum Progress Note ---
Note Note Day # 1 s/p Subjective: Patient is without complaints. Ambulating, voiding. Tolerating a regular diet w ithout nausea or vomiting. Normal lochia. Pain is well controlled with oral pain medications. bottle feeding. [] Objective: 11/22/20 11/23/20 11/23/20 21:24 03:08 06:20 Temp 36.5 36.1 36.3 Pulse 69 56 60 Resp 18 18 16 B/P (MAP) 117/58 (77) 130/67 (88) 125/70 (88) Pulse Ox 96 98 98 O2 Delivery Room Air Room Air Room Air Laboratory Tests Test 11/23/20 05:27 Range/Units White Blood Count 10.9 4.3-11.0 10^3/uL Red Blood Count 3.20 L 3.80-5.11 10^6/uL Hemoglobin 10.1 L 11.5-16.0 g/dL Hematocrit 30 L 35-52 % Mean Corpuscular Volume 93 80-99 fL Mean Corpuscular Hemoglobin 32 25-34 pg Mean Corpuscular Hemoglobin Concent 34 32-36 g/dL Red Cell Distribution Width 13.9 10.0-14.5 % Platelet Count 234 130-400 10^3/uL Mean Platelet Volume 10.2 9.0-12.2 fL Immature Granulocyte % (Auto) 1 % Neutrophils (%) (Auto) 68 42-75 % Lymphocytes (%) (Auto) 25 12-44 % Monocytes (%) (Auto) 6 0-12 % Eosinophils (%) (Auto) 1 0-10 % Basophils (%) (Auto) 1 0-10 % Neutrophils # (Auto) 7.3 1.8-7.8 10^3/uL Lymphocytes # (Auto) 2.7 1.0-4.0 10^3/uL Monocytes # (Auto) 0.6 0.0-1.0 10^3/uL Eosinophils # (Auto) 0.1 0.0-0.3 10^3/uL Basophils # (Auto) 0.1 0.0-0.1 10^3/uL Immature Granulocyte # (Auto) 0.1 0.0-0.1 10^3/uL Physical Exam: General - Alert and oriented, no apparent distress Abdomen - Soft, appropriately tender to palpation, non-distended, fundus firm at umbilicus Extremities - no edema, negative Saundra's bilaterally Assessment: 1. post- day # 1, status post spontaneous vaginal delivery. Recovering well, hemodynamically stable Plan: Routine care. Encourage breast feeding. Encourage ambulation. Ferrous sulfate supplementation. Plan for discharge today unless issue with baby Vitals - Labs Vital Signs - I&O Vital Signs Date Time Temp Pulse Resp B/P (MAP) Pulse Ox O2 Delivery O2 Flow Rate FiO2 11/23/20 06:20 36.3 60 16 125/70 (88) 98 Room Air 11/23/20 03:08 36.1 56 18 130/67 (88) 98 Room Air 11/22/20 21:24 36.5 69 18 117/58 (77) 96 Room Air 11/22/20 16:10 36.3 58 18 109/58 (75) 96 Room Air 11/22/20 13:53 36.4 71 18 121/70 (87) Room Air 11/22/20 13:23 36.2 56 18 123/72 (89) Room Air 11/22/20 13:08 53 18 127/75 (92) Room Air 11/22/20 12:53 48 18 122/81 (95) Room Air 11/22/20 12:38 59 18 113/71 (85) Room Air 11/22/20 12:24 35.8 60 18 108/64 (79) 100 Room Air 11/22/20 12:08 71 18 122/64 (83) 100 Room Air 11/22/20 12:05 60 18 126/73 (90) 100 Room Air 11/22/20 12:00 58 18 119/58 (78) 98 Room Air 11/22/20 11:52 70 18 112/57 (75) 97 Room Air 11/22/20 11:48 57 16 125/64 (84) 97 Room Air 11/22/20 11:44 55 16 139/67 (91) 97 Room Air 11/22/20 11:40 59 16 124/63 (83) 95 Room Air 11/22/20 11:37 62 16 118/58 (78) 95 Room Air 11/22/20 11:33 69 18 128/56 (80) 95 Room Air 11/22/20 11:29 63 18 129/60 (83) 97 Room Air 11/22/20 11:25 64 18 142/91 (108) 97 Room Air 11/22/20 11:20 81 18 132/63 (86) 97 Room Air 11/22/20 11:17 70 18 139/65 (89) 97 Room Air 11/22/20 11:12 68 18 141/66 (91) 81 Room Air 11/22/20 11:07 68 18 130/72 (91) 97 Room Air 11/22/20 11:02 67 18 135/63 (87) 98 Room Air 11/22/20 10:58 75 18 142/65 (90) 98 Room Air 11/22/20 10:50 59 18 151/84 (106) Room Air 11/22/20 10:35 63 18 171/77 (108) Room Air 11/22/20 10:20 56 18 153/89 (110) Room Air 11/22/20 10:05 57 18 155/98 (117) Room Air 11/22/20 09:50 59 18 136/98 (111) 98 Room Air 11/22/20 09:00 59 18 143/82 (102) 98 Room Air Labs Laboratory Tests 11/23/20 05:27: White Blood Count 10.9, Red Blood Count 3.20L, Hemoglobin 10.1L, Hematocrit 30L, Mean Corpuscular Volume 93, Mean Corpuscular Hemoglobin 32, Mean Corpuscular Hemoglobin Concent 34, Red Cell Distribution Width 13.9, Platelet Count 234, Mean Platelet Volume 10.2, Immature Granulocyte % (Auto) 1, Neutrophils (%) (Auto) 68, Lymphocytes (%) (Auto) 25, Monocytes (%) (Auto) 6, Eosinophils (%) (Auto) 1, Basophils (%) (Auto) 1, Neutrophils # (Auto) 7.3, Lymphocytes # (Auto) 2.7, Monocytes # (Auto) 0.6, Eosinophils # (Auto) 0.1, Basophils # (Auto) 0.1, Immature Granulocyte # (Auto) 0.1 ZAHIDA DE ANDA DO Nov 23, 2020 08:44
[2020-11-23] MEDS ORDERED: ACET-93 PO (08:45)
[2020-11-23] MEDS ORDERED: DCS100C PO (08:45)
[2020-11-23] MEDS ORDERED: FERR325T24 PO (08:45)
[2020-11-23] MEDS ORDERED: IBUP-844 PO (08:45)
--- NOTE | 2020-11-23 08:46 | Discharge Inst-Women's Service ---
Discharge Inst-Women's Serv Depart Medication/Instructions New, Converted or Re-Newed RX: Transmitted to Pharmacy Final Diagnosis Abnormal antibodies Vaginal delivery induction of labor Problems Reviewed?: Yes Consults/Follow Up Additional Follow Up: Yes (6 week ) Activity Activity: Activity as Tolerated Driving Instructions: You May Drive Nothing Inside Vagina: No Douching, No [place], No Tampons Diet Discharge Diet: No Restrictions Symptoms to Report to : Bleeding Excessive, Pain Increased, Fever Over 101 Degrees F, Vaginal Bleeding Increase, Cramps in Feet or Legs, Vaginal Discharge Foul For Any Problems or Questions: Contact Your Physician ZAHIDA DE ANDA DO Nov 23, 2020 08:46
[2020-11-23] MEDS ORDERED: FERROUS SULF 325 MG (IRON) TAB PO SCH (09:00)
--- NOTE | 2020-11-23 09:16 | Anesthesia-Regional Post-Op ---
Regional Patient Condition Mental Status: Alert, Oriented x3 Circulation: Same as Pre-Op Headache: Absent Sensation: Full Recovery Motor Block: Absent Post Op Complications Complications None Follow Up Care/Instructions Patient Instructions None needed. Anesthesia/Patient Condition Patient is doing well, no complaints, stable vital signs, no apparent adverse anesthesia problems. No complications reported per nursing. TUAN SALAS CRNA Nov 23, 2020 09:16
[2020-11-23 09:45] VITALS: BP 140/67
[2020-11-23] MEDS: DOCUSATE SODIUM 100 MG (COLACE) CAP PO SCH (09:50)
[2020-11-23 13:00] VITALS: BP 122/62
== END 2020-11-23 15:40 | disposition home or self-care (01) | DRG 807 ==
LOC: LDRP 20:35
PROVIDERS: ADMIT Obstetrics & Gynecology; ATTEND Obstetrics & Gynecology
PROC: 10E0XZZ Delivery of Products of Conception, External Approach (ICD-10-PCS; principal; 2020-11-22)
PROC: 0HQ9XZZ Repair Perineum Skin, External Approach (ICD-10-PCS; 2020-11-22)
DX: O69.81X0 Labor and delivery complicated by cord around neck, without compression, not applicable or unspecified (principal); Z37.0 Single live birth; O70.0 First degree perineal laceration during delivery; Z3A.39 39 weeks gestation of pregnancy
CPT/HCPCS: 36415; 81000; 85025; 86850; 86870; 86900; 86901

== ENCOUNTER 2022-05-22 10:33 | Emergency (ER) | payer MEDICAID ==
[~2022-05-22] VITALS: Ht 170 cm; Wt 108.0 kg
[~2022-05-22 10:33] MED LIST changes: +ACET-93 PO; +DOCU-239 PO; +FERR325T24 PO; +IBUP-844 PO; -OMEP40CA27 PO; +OMEP40CA6 PO; -SULF1TAB35 PO; +SULF1TAB38 PO
[2022-05-22 11:12] VITALS: BP 134/63
[2022-05-22] MEDS ORDERED: LACTATED RINGERS 1,000 ML IV SCH (11:30)
--- NOTE | 2022-05-22 11:32 | ED General ---
General Chief Complaint: General Problems/Pain Stated Complaint: BACK PAIN | COUGH | NASAL DRAINAGE |ABD PAIN Nursing Triage Note: ARRIVES TODAY WITH C/O GENERALIED PAIN IN LOW BACK AND ABD FOR LAST FEW DAYS NOW TODAY HAVING PAIN IN MID BACK RADIATING THROUGH TO HER CHEST. PATIENT STATES SHE FEELS SHE MAY BE DEHYDRATED BECAUSE SHE IS 14 WEEKS AND UNABLE TO KEEP ANY FOOD OR FLUIDS DOWN. HER DR ADVISED HER TO COME TO THE ED TO GET CHECKED OUT. Source of Information: Patient Exam Limitations: No Limitations History of Present Illness Date Seen by Provider: May 22, 2022 Time Seen by Provider: :30 Initial Comments To ER by private vehicle with reports of nasal drainage, left lower abdominal pain and cramping, midline low back pain, pain between her shoulder blades that radiates through to her chest sharp and brief in nature and intermittent. She was seen by her primary care provider today and given cefdinir. Has not yet had COVID or flu swab. No fevers or chills. She is 14 weeks gestation with twins. She follows with Dr. Obrien. She is AB 3. She is had a lot of nausea and vomiting unable to keep down any oral fluids. Has not had any nausea medication. Timing/Duration: 1-2 Days Severity: Moderate Associated Systoms: Cough Allergies and Home Medications Allergies Coded Allergies: No Known Drug Allergies (Verified , 05/22/22) Patient Home Medication List Home Medication List Reviewed: Yes Acetaminophen (Acetaminophen) 500 Mg Tablet, 1,000 MG PO Q8HR Prescribed by: ZAHIDA DE ANDA on 11/23/20 0845 Cefuroxime Axetil (Cefuroxime) 250 Mg Tablet, 250 MG PO BID Prescribed by: BROOKE MCKENZIE on 05/22/22 1207 Docusate Sodium (Dok) 100 Mg Capsule, 100 MG PO BID Prescribed by: ZAHIDA DE ANDA on 11/23/20 0845 Ferrous Sulfate (Ferosul) 325 Mg Tablet, 325 MG PO DAILY Prescribed by: ZAHIDA DE ANDA on 11/23/20 0845 Ibuprofen (Ibu) 600 Mg Tablet, 600 MG PO Q6H Prescribed by: ZAHIDA DE ANDA on 11/23/20 0845 Ondansetron (Ondansetron Odt) 8 Mg Tab.rapdis, 8 MG SL Q4H PRN for NAUSEA/VOMITING Prescribed by: BROOKE MCKENZIE on 05/22/22 1207 Vit No.124/Iron/FA ( Vitamin Tablet) 1 Each Tablet, 1 EACH PO DAILY, (Reported) Entered as Reported by: DOUGLAS KEEN on 04/29/181949 Review of Systems Review of Systems Constitutional: see HPI EENTM: see HPI Respiratory: see HPI Cardiovascular: no symptoms reported (Yes) Genitourinary: no symptoms reported Expected Date of Delivery: November 18, 2022 Musculoskeletal: no symptoms reported (She is 14 weeks gestation with this in fast track 3 and left lower cramping and pain. ) Skin: no symptoms reported Psychiatric/Neurological: No Symptoms Reported Hematologic/Lymphatic: No Symptoms Reported ( what that) Past Klhjjeo-Ybufkp-Pemnyy Hx Patient Social History Tobacco Use?: No Substance use?: No Alcohol Use?: No Pt feels they are or have been: No Immunizations Up To Date Tetanus Booster (TDap): Less than 5yrs Influenza Vaccine Up-to-Date: Yes; Up-to-Date Seasonal Allergies Seasonal Allergies: No Past Medical History Surgery/Hospitalization HX: BLOOD CLOTTING DISORDER Surgeries: Yes Gallbladder Respiratory: No Cardiac: No Neurological: No Expected Date of Delivery: November 18, 2022 Last Menstrual Period: Feb 14, 2022 Reproductive Disorders: Yes (ANTI-FYA ANTIBODIES) Female Reproductive Disorders: Denies Genitourinary: No Gastrointestinal: Yes Gastroesophageal Reflux, Gall Bladder Disease Musculoskeletal: No Endocrine: No HEENT: No Cancer: No Psychosocial: No Integumentary: No Blood Disorders: Yes (anemia, anti-fya ANTIBODIES) Adverse Reaction/Blood Tranf: No (hx of transfusion in 2008) Family Medical History No Pertinent Family Hx Physical Exam Vital Signs Vital Signs - First Documented 05/22/22 11:12 Temp 36.9 Pulse 110 Resp 18 B/P (MAP) 134/63 (86) Pulse Ox 98 O2 Delivery Room Air Capillary Refill : Less Than 3 Seconds Height, Weight, BMI Height: 5'7.00" Weight: 273lbs. 8.0oz. 124.227926ko; 37.00 BMI Method:Stated General Appearance: No Apparent Distress, WD/WN Eyes: Bilateral Eye Normal Inspection, Bilateral Eye PERRL, Bilateral Eye EOMI HEENT: PERRL/EOMI, TMs Normal Neck: Full Range of Motion, Normal Inspection Respiratory: No Accessory Muscle Use, No Respiratory Distress Cardiovascular: Regular Rate, Rhythm, Normal Peripheral Pulses Gastrointestinal: Non Tender, Soft Extremity: Normal Capillary Refill, Normal Inspection Neurologic/Psychiatric: Alert, Oriented x3 Skin: Normal Color, Warm/Dry Progress/Results/Core Measures Suspected Sepsis SIRS Temperature: Pulse: 110 Respiratory Rate: 18 Laboratory Tests 05/22/22 11:30: White Blood Count 8.5 Blood Pressure 134 /63 Mean: 86 Laboratory Tests 05/22/22 11:30: Creatinine 0.65, Platelet Count 283, Total Bilirubin 0.4 Results/Orders Lab Results Laboratory Tests Test 05/22/22 11:30 05/22/22 11:40 Range/Units White Blood Count 8.5 4.3-11.0 10^3/uL Red Blood Count 4.00 3.80-5.11 10^6/uL Hemoglobin 11.9 11.5-16.0 g/dL Hematocrit 35 35-52 % Mean Corpuscular Volume 88 80-99 fL Mean Corpuscular Hemoglobin 30 25-34 pg Mean Corpuscular Hemoglobin Concent 34 32-36 g/dL Red Cell Distribution Width 13.6 10.0-14.5 % Platelet Count 283 130-400 10^3/uL Mean Platelet Volume 9.7 9.0-12.2 fL Immature Granulocyte % (Auto) 1 % Neutrophils (%) (Auto) 87 H 42-75 % Lymphocytes (%) (Auto) 6 L 12-44 % Monocytes (%) (Auto) 7 0-12 % Eosinophils (%) (Auto) 0 0-10 % Basophils (%) (Auto) 0 0-10 % Neutrophils # (Auto) 7.4 1.8-7.8 10^3/uL Lymphocytes # (Auto) 0.5 L 1.0-4.0 10^3/uL Monocytes # (Auto) 0.6 0.0-1.0 10^3/uL Eosinophils # (Auto) 0.0 0.0-0.3 10^3/uL Basophils # (Auto) 0.0 0.0-0.1 10^3/uL Immature Granulocyte # (Auto) 0.0 0.0-0.1 10^3/uL Neutrophils % (Manual) 88 % Lymphocytes % (Manual) 7 % Monocytes % (Manual) 4 % Eosinophils % (Manual) 1 % Blood Morphology Comment NORMAL Sodium Level 134 L 135-145 MMOL/L Potassium Level 3.5 L 3.6-5.0 MMOL/L Chloride Level 105 98-107 MMOL/L Carbon Dioxide Level 19 L 21-32 MMOL/L Anion Gap 10 5-14 MMOL/L Blood Urea Nitrogen 5 L 7-18 MG/DL Creatinine 0.65 0.60-1.30 MG/DL Estimat Glomerular Filtration Rate 116 BUN/Creatinine Ratio 8 Glucose Level 93 70-105 MG/DL Calcium Level 8.9 8.5-10.1 MG/DL Corrected Calcium 9.1 8.5-10.1 MG/DL Total Bilirubin 0.4 0.1-1.0 MG/DL Aspartate Amino Transf (AST/SGOT) 14 5-34 U/L Alanine Aminotransferase (ALT/SGPT) 15 0-55 U/L Alkaline Phosphatase 60 40-136 U/L Total Protein 7.2 6.4-8.2 GM/DL Albumin 3.7 3.2-4.5 GM/DL Lipase 12 8-78 U/L Urine Color YELLOW Urine Clarity CLEAR Urine pH 6.5 5-9 Urine Specific [place] 1.015 L 1.016-1.022 Urine Protein NEGATIVE NEGATIVE Urine Glucose (UA) NEGATIVE NEGATIVE Urine Ketones NEGATIVE NEGATIVE Urine Nitrite POSITIVE H NEGATIVE Urine Bilirubin NEGATIVE NEGATIVE Urine Urobilinogen 0.2 < = 1.0 MG/DL Urine Leukocyte Esterase TRACE H NEGATIVE Urine RBC (Auto) TRACE-I H NEGATIVE Urine RBC RARE /HPF Urine WBC 0-2 /HPF Urine Squamous Epithelial Cells 0-2 /HPF Urine Crystals NONE /LPF Urine Bacteria LARGE H /HPF Urine Casts NONE /LPF Urine Mucus NEGATIVE /LPF Urine Culture Indicated YES My Orders Orders - BROOKE MCKENZIE APRN Cbc With Automated Diff (05/22/22 11:25) Comprehensive Metabolic Panel (05/22/22 11:25) Iv Heplock-Insert (Order) (05/22/22 11:25) Lactated Ringers (Lr 1000 Ml Iv Solution (05/22/22 11:30) Lipase (05/22/22 11:25) Ua Culture If Indicated (05/22/22 11:29) Ondansetron Injection (Zofran Injectio (05/22/22 11:45) Manual Differential (05/22/22 11:30) Urine Culture (05/22/22 11:40) Ceftriaxone 1 Gm Pre-Mix (Rocephin 1 Gm (05/22/22 12:15) Us Ob Single Fetus<14 [id number] (05/22/22 11:29) Medications Given in ED Current Medications Medications Dose Ordered Sig/Alex Route Start Time Stop Time Status Last Admin Dose Admin Ondansetron HCl 8 mg ONCE ONCE IVP 05/22/22 11:45 05/22/22 11:46 DC 05/22/22 11:45 8 MG Vital Signs/I&O 05/22/22 11:12 Temp 36.9 Pulse 110 Resp 18 B/P (MAP) 134/63 (86) Pulse Ox 98 O2 Delivery Room Air Capillary Refill : Less Than 3 Seconds Blood Pressure Mean: 86 Departure Impression Primary Impression: Pleuritic chest pain Additional Impressions: Nausea and vomiting in Asymptomatic bacteriuria during Disposition: 01 HOME, SELF-CARE Condition: Stable Departure-Patient Inst. Decision time for Depature: 12:06 Referrals: ALEXA OBRIEN DO (PCP/Family) Primary Care Physician Patient Instructions: Nausea and Vomiting of , Pleuritic Chest Pain ED Add. Discharge Instructions: 1. Return to ER for any concerns 2. Nausea medication antibiotics as directed. Follow-up with your doctor later this week. All discharge instructions reviewed with patient and/or family. Voiced understanding. Scripts Cefuroxime Axetil (Cefuroxime) 250 Mg Tablet 250 MG PO BID, #6 TAB Prov: BROOKE MCKENZIE APRN 05/22/22 Ondansetron (Ondansetron Odt) 8 Mg Tab.rapdis 8 MG SL Q4H PRN for NAUSEA/VOMITING, #14 TAB Prov: BROOKE MCKENZIE APRN 05/22/22 Work/School Note: Work Release Form Date Seen in the Emergency Department: May 22, 2022 Return to Work: May 24, 2022 BROOKE MCKENZIE APRN May 22, 2022 11:32
[2022-05-22 11:39] LABS: BASOPHILS % (AUTO) 0 % (0-10); EOSINOPHILS % (AUTO) 0 % (0-10); HEMATOCRIT 35 % (35-52); HEMOGLOBIN 11.9 g/dL (11.5-16.0); LYMPHOCYTES # (AUTO) 0.5 10^3/uL (1.0-4.0); LYMPHOCYTES % (AUTO) 6 % (12-44); MEAN CORPUSCULAR HEMOGLOBIN 30 pg (25-34); MEAN CORPUSCULAR HGB CONC 34 g/dL (32-36); MEAN CORPUSCULAR VOLUME 88 fL (80-99); MEAN PLATELET VOLUME 9.7 fL (9.0-12.2); MONOCYTES # (AUTO) 0.6 10^3/uL (0.0-1.0); MONOCYTES % (AUTO) 7 % (0-12); NEUTROPHILS # (AUTO) 7.4 10^3/uL (1.8-7.8); NEUTROPHILS % (AUTO) 87 % (42-75); PLATELET COUNT 283 10^3/uL (130-400); WHITE BLOOD COUNT 8.5 10^3/uL (4.3-11.0)
[2022-05-22] MEDS ORDERED: ONDANSETRON 4 MG/2 ML (SDV) Z0FRAN IVP ONE (11:45)
[2022-05-22 11:48] LABS: BILIRUBIN,URINE NEGATIVE (NEGATIVE); CLARITY,URINE CLEAR; COLOR,URINE YELLOW; GLUCOSE, URINE (UA) NEGATIVE (NEGATIVE); KETONES,URINE NEGATIVE (NEGATIVE); LEUKOCYTE ESTERASE ,URINE TRACE (NEGATIVE); NITRITE,URINE POSITIVE (NEGATIVE); PH,URINE 6.5 (5-9); PROTEIN,URINE NEGATIVE (NEGATIVE)
[2022-05-22 11:51] LABS: LYMPHOCYTES % (MANUAL) 7 %; NEUTROPHILS % (MANUAL) 88 %
[2022-05-22 11:52] LABS: EOSINOPHILS % (MANUAL) 1 %; MONOCYTES % (MANUAL) 4 %; RBC MORPH NORMAL
[2022-05-22 11:57] LABS: BACTERIA,URINE LARGE /HPF; RBC,URINE RARE /HPF; SQUAMOUS EPITHELIAL CELL,UR 0-2 /HPF; WBC,URINE 0-2 /HPF
[2022-05-22 11:59] LABS: ALBUMIN 3.7 GM/DL (3.2-4.5); BILIRUBIN,TOTAL 0.4 MG/DL (0.1-1.0); CALCIUM 8.9 MG/DL (8.5-10.1); CREATININE SERUM 0.65 MG/DL (0.60-1.30); POTASSIUM 3.5 MMOL/L (3.6-5.0); TOTAL PROTEIN 7.2 GM/DL (6.4-8.2)
[2022-05-22] MEDS ORDERED: CEFU250T80 PO (12:07)
[2022-05-22] MEDS ORDERED: ONDA8TAB13 SL (12:07)
[2022-05-22] MEDS ORDERED: cefTRIAXone 1 GM PRE-MIX 50 ML IV ONE (12:15)
--- NOTE | 2022-05-22 12:47 | Diagnostic Imaging Report ---
INDICATION: Twin gestations, left lower quadrant pain. TECHNIQUE: OB sonography performed in the routine fashion. FINDINGS: Twin intrauterine gestations are visualized. Twin A showed heart rate 150 BPM and measured 14 weeks 1 day in size. Twin B showed heart rate of 150 BPM. There is no free fluid. Neither ovary could be well visualized. There is no evidence of placenta previa. IMPRESSION: Twin intrauterine gestations with measurements of 14 weeks 2 days in size. No detectable abnormality. Dictated by: Dictated on workstation # [id number]
== END 2022-05-22 13:01 | disposition home or self-care (01) ==
LOC: EDUNIT# 10:33 → ER 10:36
DX: O26.891 Other specified pregnancy related conditions, first trimester (principal); R07.81 Pleurodynia; R82.71 Bacteriuria; O21.9 Vomiting of pregnancy, unspecified; Z3A.14 14 weeks gestation of pregnancy; Z28.310 Unvaccinated for COVID-19
CPT/HCPCS: 36415; 76801; 76802; 80053; 81000; 83690; 85007; 85027; 87077; 87088; 87186